=== PATIENT | female | born 1960 | race Caucasian/White ===

== ENCOUNTER 2019-05-29 07:39 | Observation (INO) | payer MEDICAID ==
--- NOTE | 2019-05-29 08:31 | EDM.PDOC ---
ED HPI GENERAL MEDICAL PROBLEM - General Chief Complaint: Abdominal Pain Stated Complaint: STOMACH, CHEST AND BACK PAIN Time Seen by Provider: 05/29/19 08:28 Source of Information: Reports: Patient History Limitations: Reports: No Limitations - History of Present Illness INITIAL COMMENTS - FREE TEXT/NARRATIVE: 58-year-old female who reports that she was awakened at approximately 3 AM today with pain in her upper abdomen with abdominal bloating and radiation of the pain to her back. She had had some mild upset and mild discomfort in her abdomen at bedtime and took an antacid without any apparent relief but was able to go to sleep because the symptoms were mild at this point. The more severe pain has been present since 3 AM and been somewhat colicky in nature but has never gone away and it seems to be worsening over time rather than improving. She has had pain similar to this multiple times in the past but it has been less severe and it has always gone away with time. She has no change in the pain with drinking but she has had increase in the pain with eating and in the recent past she has had this pain after eating, particularly spicy or fatty foods. She is rating the pain as an 8/10. It is a sharp pain and spasm-like pain that has a constant component and a waxing and waning component that feels like tearing. She has had nausea but no vomiting. Some chills but no fever. There are no other associated signs or symptoms. There are no other modifying factors. Onset: Today (3 AM) Duration: Getting Worse Location: Reports: Abdomen, Back, Radiates to (Back) Quality: Reports: Sharp, Throbbing, Other (Spasm-like) Improves with: Reports: None Worsens with: Reports: Eating, Other (Palpation) Context: Reports: Other Associated Symptoms: Reports: Diaphoresis, Fever/Chills (Chills but no known fever), Nausea/Vomiting, Weakness Treatments RN REHAB: Reports: Other (see below) (As above) Lower Abdomen Pain Score (Numeric/FACES): 6 - Related Data Allergies Allergy/AdvReac Type Severity Reaction Status Date / Time No Known Allergies Allergy Verified 05/29/19 09:10 Home Meds: Home Meds Benazepril [Lotensin] 20 mg PO DAILY 05/29/19 [History] Naproxen 500 mg PO Q8H PRN 05/29/19 [History] medroxyPROGESTERone [Provera] 10 mg PO DAILY 05/29/19 [History] Past Medical History Cardiovascular History: Reports: High Cholesterol, Hypertension Gastrointestinal History: Reports: GERD, Irritable Bowel Syndrome Musculoskeletal History: Reports: Fibromyalgia Psychiatric History: Reports: Anxiety, Depression - Past Surgical History Other Surgical History Comment: No previous surgeries. Social & Family History - Tobacco Use Smoking Status *Q: Never Smoker - Alcohol Use Alcohol Use History: No - Living Situation & Occupation Social History Comment: She is here with her daughter. ED ROS GENERAL - Review of Systems Review Of Systems: See Below Constitutional: Reports: Chills, Diaphoresis HEENT: Reports: No Symptoms Respiratory: Reports: No Symptoms Cardiovascular: Reports: No Symptoms Endocrine: Reports: No Symptoms GI/Abdominal: Reports: Abdominal Pain, Nausea : Reports: No Symptoms Musculoskeletal: Reports: Other (Pain all over, which she states is her usual fibromyalgia pain but maybe a little worse.) Skin: Reports: Diaphoresis Neurological: Reports: No Symptoms Hematologic/Lymphatic: Reports: No Symptoms Immunologic: Reports: No Symptoms ED EXAM, GI/ABD - Physical Exam Exam: See Below Exam Limited By: No Limitations General Appearance: Alert, Moderate Distress, Obese Eyes: Bilateral: Normal Appearance (Sclerae are anicteric), EOMI Ears: Normal External Exam Nose: Normal Inspection, Normal Mucosa, No Blood Throat/Mouth: Normal Voice, No Airway Compromise, Other (Dry mucous membranes) Head: Atraumatic, Normocephalic Neck: Normal Inspection, Supple, Non-Tender, Full Range of Motion Respiratory/Chest: No Respiratory Distress, Lungs Clear, Normal Breath Sounds, No Accessory Muscle Use, Other (Chest is tender to palpation diffusely and patient reports this is due to her fibromyalgia) Cardiovascular: Normal Peripheral Pulses, Regular Rate, Rhythm, No JVD GI/Abdominal Exam: Pelvis Stable, Distended, Tender (In right upper quadrant exquisitely), Abnormal Bowel Sounds (Somewhat diminished) Extremities: Normal Inspection, Normal Range of Motion, Non-Tender, No Pedal Edema, Normal Capillary Refill Neurological: Alert, Oriented, CN II-XII Intact, Normal Cognition, No Motor/ Sensory Deficits Skin Exam: Warm, Intact, Normal Color, No Rash, Diaphoretic (Slightly) EKG INTERPRETATION EKG Date: 05/29/19 Time: 08:16 Rhythm: NSR Rate (Beats/Min): 74 [place]: Normal P-Wave: Present QRS: Normal ST-T: Normal QT: Normal Comparison: NA - No Prior EKG Course - Vital Signs Last Recorded V/S: Last Vital Signs Temp 36.6 C 05/30/19 16:00 Pulse 101 H 05/30/19 16:00 Resp 15 05/30/19 16:00 BP 130/66 05/30/19 16:00 Pulse Ox 97 05/30/19 16:00 - Orders/Labs/Meds Orders: Medication Orders Hydrocodone Bitart/Acetaminophen (Burns 325-5 Mg) 1 tab PO Q4H PRN PRN Reason: Pain (mild 1-3) Last Admin: 05/30/19 21:00 Dose: 1 tab Admin: 05/30/19 17:09 Dose: 1 tab Benazepril HCl (Lotensin) 20 mg PO DAILY COUNTS INCLUDE 234 BEDS AT THE [facility] Last Admin: 05/30/19 12:22 Dose: 20 mg Hydromorphone HCl (Dilaudid) 0.5 mg IVPUSH Q2H PRN PRN Reason: Pain (severe 7-10) Last Admin: 05/30/19 18:25 Dose: 0.5 mg Admin: 05/30/19 12:24 Dose: 0.5 mg Admin: 05/30/19 03:19 Dose: 0.5 mg Admin: 05/29/19 21:59 Dose: 0.5 mg Admin: 05/29/19 19:43 Dose: 0.5 mg Admin: 05/29/19 16:55 Dose: 0.5 mg Lactated Ringer's (Ringers, Lactated) 1,000 mls @ 125 mls/hr IV ASDIRECTED COUNTS INCLUDE 234 BEDS AT THE [facility] Last Admin: 05/30/19 18:13 Dose: 125 mls/hr Infusion: 05/30/19 17:00 Dose: 125 mls/hr Admin: 05/30/19 09:00 Dose: 125 mls/hr Medroxyprogesterone (10mg) 0 each PO DAILY COUNTS INCLUDE 234 BEDS AT THE [facility] Last Admin: 05/30/19 12:21 Dose: 1 each Ondansetron HCl (Zofran) 4 mg IV Q6H PRN PRN Reason: Nausea/Vomiting Sodium Chloride (Saline Flush) 10 ml FLUSH ASDIRECTED PRN PRN Reason: Keep Vein Open Last Admin: 05/30/19 12:25 Dose: 10 ml Admin: 05/29/19 09:16 Dose: 10 ml Labs: Laboratory Tests 05/29/19 05/29/19 05/29/19 Range/Units 08:00 08:57 08:57 WBC 10.1 (4.5-12.0) X10-3/uL RBC 5.35 H (3.23-5.20) x10(6)uL Hgb 15.6 H (11.5-15.5) g/dL Hct 47.6 (30.0-51.3) % MCV 89.0 (80-96) fL MCH 29.2 (27.7-33.6) pg MCHC 32.8 (32.2-35.4) g/dL RDW 13.6 (11.5-15.5) % Plt Count 158 (125-369) X10(3)uL MPV 8.6 (7.4-10.4) fL Neut % (Auto) 84.6 H (46-82) % Lymph % (Auto) 11.2 L (13-37) % [place] % (Auto) 3.7 L (4-12) % Eos % (Auto) 0 L (1.0-5.0) % Baso % (Auto) 0 (0-2) % Neut # (Auto) 8.6 H (1.6-8.3) # Lymph # (Auto) 1.1 (0.6-5.0) # [place] # (Auto) 0.4 (0.0-1.3) # Eos # (Auto) 0.0 (0.0-0.8) # Baso # (Auto) 0.0 (0.0-0.2) # Sodium 137 (135-145) mmol/L Potassium 5.0 (3.5-5.3) mmol/L Chloride 101 (100-110) mmol/L Carbon Dioxide 25 (21-32) mmol/L BUN 6 L (7-18) mg/dL Creatinine 0.8 (0.55-1.02) mg/dL Est Cr Clr Drug Dosing 70.01 mL/min Estimated GFR (MDRD) > 60 (>60) BUN/Creatinine Ratio 7.5 L (9-20) Glucose 397 H (80-116) mg/dL Calcium 9.1 (8.6-10.2) mg/dL Total Bilirubin 0.8 (0.1-1.3) mg/dL AST 28 H (5-25) IU/L ALT 54 H (12-36) U/L Alkaline Phosphatase 135 H (56-112) IU/L Troponin I (<0.017-0.056) ng/mL C-Reactive Protein (0.5-0.9) mg/dL Total Protein 7.7 (6.0-8.0) g/dL Albumin 3.7 (3.2-4.6) g/dL Globulin 4.0 g/dL Albumin/Globulin Ratio 0.9 Amylase 47 (25-115) U/L Urine Color Yellow (YELLOW) Urine Appearance Clear (CLEAR) Urine pH 5.0 (5.0-6.5) Ur Specific [place] 1.015 (1.010-1.025) Urine Protein Negative (NEGATIVE) mg/dL Urine Glucose (UA) >1000 H (NORMAL) mg/dL Urine Ketones 50 H (NEGATIVE) mg/dL Urine Occult Blood Moderate H (NEGATIVE) Urine Nitrite Negative (NEGATIVE) Urine Bilirubin Negative (NEGATIVE) Urine Urobilinogen Normal (NEGATIVE) mg/dL Ur Leukocyte Esterase Moderate H (NEGATIVE) Urine RBC 5-10 H (0-5) Urine WBC 5-10 H (0-5) Ur Squamous Epith Cells Moderate H (NS,R,O) Urine Bacteria Few H (NS) 05/29/19 05/29/19 Range/Units 08:57 08:57 WBC (4.5-12.0) X10-3/uL RBC (3.23-5.20) x10(6)uL Hgb (11.5-15.5) g/dL Hct (30.0-51.3) % MCV (80-96) fL MCH (27.7-33.6) pg MCHC (32.2-35.4) g/dL RDW (11.5-15.5) % Plt Count (125-369) X10(3)uL MPV (7.4-10.4) fL Neut % (Auto) (46-82) % Lymph % (Auto) (13-37) % [place] % (Auto) (4-12) % Eos % (Auto) (1.0-5.0) % Baso % (Auto) (0-2) % Neut # (Auto) (1.6-8.3) # Lymph # (Auto) (0.6-5.0) # [place] # (Auto) (0.0-1.3) # Eos # (Auto) (0.0-0.8) # Baso # (Auto) (0.0-0.2) # Sodium (135-145) mmol/L Potassium (3.5-5.3) mmol/L Chloride (100-110) mmol/L Carbon Dioxide (21-32) mmol/L BUN (7-18) mg/dL Creatinine (0.55-1.02) mg/dL Est Cr Clr Drug Dosing mL/min Estimated GFR (MDRD) (>60) BUN/Creatinine Ratio (9-20) Glucose (80-116) mg/dL Calcium (8.6-10.2) mg/dL Total Bilirubin (0.1-1.3) mg/dL AST (5-25) IU/L ALT (12-36) U/L Alkaline Phosphatase (56-112) IU/L Troponin I < 0.017 L (<0.017-0.056) ng/mL C-Reactive Protein 2.2 H (0.5-0.9) mg/dL Total Protein (6.0-8.0) g/dL Albumin (3.2-4.6) g/dL Globulin g/dL Albumin/Globulin Ratio Amylase (25-115) U/L Urine Color (YELLOW) Urine Appearance (CLEAR) Urine pH (5.0-6.5) Ur Specific [place] (1.010-1.025) Urine Protein (NEGATIVE) mg/dL Urine Glucose (UA) (NORMAL) mg/dL Urine Ketones (NEGATIVE) mg/dL Urine Occult Blood (NEGATIVE) Urine Nitrite (NEGATIVE) Urine Bilirubin (NEGATIVE) Urine Urobilinogen (NEGATIVE) mg/dL Ur Leukocyte Esterase (NEGATIVE) Urine RBC (0-5) Urine WBC (0-5) Ur Squamous Epith Cells (NS,R,O) Urine Bacteria (NS) Meds: Medications Generic Name Dose Route Start Last Admin Trade Name Freq PRN Reason Stop Dose Admin Hydrocodone Bitart/Acetaminophen 1 tab 05/30/19 10:54 05/30/19 21:00 Burns 325-5 Mg PO 1 tab Q4H PRN Administration Pain (mild 1-3) Benazepril HCl 20 mg 05/30/19 09:00 05/30/19 12:22 Lotensin PO 20 mg DAILY BRIANA Administration Hydromorphone HCl 0.5 mg 05/29/19 13:56 05/30/19 18:25 Dilaudid IVPUSH 0.5 mg Q2H PRN Administration Pain (severe 7-10) Lactated Ringer's 1,000 mls @ 125 mls/hr 05/30/19 11:00 05/30/19 18:13 Ringers, Lactated IV 125 mls/hr ASDIRECTED BRIANA Administration Medroxyprogesterone 0 each 05/30/19 09:00 05/30/19 12:21 10mg PO 1 each DAILY BRIANA Administration Ondansetron HCl 4 mg 05/29/19 13:56 Zofran IV Q6H PRN Nausea/Vomiting Sodium Chloride 10 ml 05/29/19 08:44 05/30/19 12:25 Saline Flush FLUSH 10 ml ASDIRECTED PRN Administration Keep Vein Open Discontinued Medications Generic Name Dose Route Start Last Admin Trade Name Freq PRN Reason Stop Dose Admin Fentanyl 50 mcg 05/29/19 08:46 05/29/19 09:14 Sublimaze IVPUSH 05/29/19 08:47 50 mcg ONETIME ONE Administration Hydromorphone HCl 1 mg 05/29/19 12:30 05/29/19 12:45 Dilaudid IVPUSH 05/29/19 12:31 1 mg ONETIME ONE Administration Sodium Chloride 1,000 mls @ 999 mls/hr 05/29/19 08:46 05/29/19 09:12 Normal Saline IV 05/29/19 09:46 999 mls/hr .BOLUS ONE Administration Sodium Chloride 1,000 mls @ 150 mls/hr 05/29/19 09:00 05/30/19 03:12 Normal Saline IV 150 mls/hr ASDIRECTED BRIANA Administration Piperacillin Sod/Tazobactam 50 mls @ 100 mls/hr 05/29/19 12:00 05/29/19 21:33 Sod 3.375 gm/ Sodium Chloride IV Not Given Q6H BRIANA Piperacillin Sod/Tazobactam 50 mls @ 100 mls/hr 05/29/19 22:30 05/30/19 14:38 Sod 3.375 gm/ Sodium Chloride IV Not Given Q6H BRIANA Ondansetron HCl 4 mg 05/29/19 08:46 05/29/19 09:12 Zofran IVPUSH 05/29/19 08:47 4 mg ONETIME ONE Administration - Re-Assessments/Exams Free Text/Narrative Re-Assessment/Exam: 05/29/19 11:00: Patient's right upper quadrant ultrasound showed several stones within the gallbladder and somewhat thickened gallbladder wall with no pericholecystic fluid. The patient did have a sonographic Villatoro. Her lab tests were somewhat reassuring but did have an elevated CRP and some mildly elevated LFTs. Her exam, blood tests and ultrasound are consistent with early cholecystitis. I feel the patient will need admission or pain control, IV antibiotics and likely surgery. I will discuss this with the patient. 05/29/19 11:40: Patient's pain was somewhat improved after the initial dose of fentanyl but following the ultrasound pain increased again. I spent a good bit of time discussing the findings of the ultrasound and the implications of the ultrasound, her exam and her blood tests. She was fairly hesitant for surgical referral or consultation because apparently several family members have had bad experiences after they had had their gallbladders taken out. I did discuss the patient's case with Dr. Tate and I did not feel that it was safe to attempt discharge because I felt that she had acute cholecystitis and would have increased morbidity and likelihood of recurrent admission for this if we were to discharge the patient. The patient has agreed to admission with IV fluids, pain medication and IV antibiotics and Dr. Tate has agreed to admit the patient. The patient has also agreed to surgical consultation. Therefore I will admit the patient. 05/29/19 13:45: I have placed should orders for Dr. Tate on this patient. I have also written for additional pain medications as her pain was worsening. Dr. Tate has seen the patient and will see the patient later today. He will be arranging for Dr. Kaplan to see the patient as well. Departure - Departure Time of Disposition: 13:48 Disposition: Refer to Observation Condition: Fair Clinical Impression: Acute cholecystitis, Uncontrolled pain, Dehydration - Discharge Information
[2019-05-29] MEDS ORDERED: Sodium Chloride 0.9% 1,000 ML IV ONE (08:46)
[2019-05-29] MEDS ORDERED: Ondansetron 4 MG/2 ML SDV IVPUSH ONE (08:46)
[2019-05-29] MEDS ORDERED: fentaNYL 100 MCG/2 ML SDV IVPUSH ONE (08:46)
[2019-05-29] MEDS: Sodium Chloride 0.9% 10 ML Syringe FLUSH PRN (09:16)
[2019-05-29] MEDS: Sodium Chloride 0.9% 1,000 ML IV SCH ×2 (10:12→20:38)
[2019-05-29] MEDS ORDERED: HYDROmorphone 2 MG/ML SDV IVPUSH ONE (12:30)
[2019-05-29] MEDS ORDERED: Ondansetron 4 MG/2 ML SDV IV PRN (13:56)
--- NOTE | 2019-05-29 15:20 | PCM.HP ---
H&P History of Present Illness - General Date of Service: 05/29/19 Admit Problem/Dx: Admission Diagnosis/Problem Admission Diagnosis/Problem Cholecystitis Source of Information: Patient History Limitations: Reports: No Limitations - History of Present Illness Initial Comments - Free Text/Narative: This is 58-year-old female patient came in complaining of abdominal pain radiating to the back. ER doc saw her and diagnosed gallbladder disease and felt this could be cholecystitis. Patient says she's had some abdominal pain off and on but today it really got bad. She has nausea but no fevers or chills. Abdominal pain is upper abdomen worse on the right than on the left. She denies vomiting, diarrhea, constipation, dysuria, pyuria, hematuria. Ultrasound the ER show gallstones and positive Villatoro sign. Lower Abdomen Pain Score (Numeric/FACES): 10 - Related Data Allergies/Adverse Reactions: Allergies Allergy/AdvReac Type Severity Reaction Status Date / Time No Known Allergies Allergy Verified 05/29/19 09:10 Home Medications: Home Meds Benazepril [Lotensin] 20 mg PO DAILY 05/29/19 [History] Naproxen 500 mg PO Q8H PRN 05/29/19 [History] medroxyPROGESTERone [Provera] 10 mg PO DAILY 05/29/19 [History] Past Medical History Cardiovascular History: Reports: Hypertension Respiratory History: Reports: Asthma, Sleep Apnea Other Respiratory History: pt has sleep apnea as verbalized by daughter Genitourinary History: Reports: Other (See Below) Other Genitourinary History: cervical hyperplasia CERTIFIED [employer] REPORTER History: Reports: Other (See Below) Other OB/BYN History: cervical hyperplasia Musculoskeletal History: Reports: Other (See Below) Other Musculoskeletal History: fibromyalgia Neurological History: Reports: Migraines Other Neuro History: and tension headache from fibromyalgia - Past Surgical History HEENT Surgical History: Reports: Oral Surgery, Other (See Below) Other HEENT Surgeries/Procedures: wisdom teeth extraction Cardiovascular Surgical History: Reports: None Respiratory Surgical History: Reports: None Female Surgical History: Reports: Other (See Below) Other Female Surgeries/Procedures: multiple martínez cyst (fibroid) on the breast , not taking drugs or not candidate for surgery Social & Family History - Tobacco Use Smoking Status *Q: Never Smoker Second Hand Smoke Exposure: No - Caffeine Use Caffeine Use: Reports: Soda Caffeine Use Comment: seldom drinks soda or coffee - Recreational Drug Use Recreational Drug Use: No H&P Review of Systems - Review of Systems: Review Of Systems: See Below General: Reports: No Symptoms HEENT: Reports: No Symptoms Pulmonary: Reports: No Symptoms Cardiovascular: Reports: No Symptoms Gastrointestinal: Reports: Abdominal Pain, Anorexia, Decreased Appetite, Nausea. Denies: Bloody Stool, Vomiting Genitourinary: Reports: No Symptoms Musculoskeletal: Reports: No Symptoms Skin: Reports: No Symptoms Psychiatric: Reports: No Symptoms Neurological: Reports: No Symptoms Hematologic/Lymphatic: Reports: No Symptoms Immunologic: Reports: No Symptoms Exam - Exam Exam: See Below - Vital Signs Weight: 278 lb 1.6 oz - Exam General: Alert, Oriented, Cooperative, Mild Distress HEENT: Hearing Intact, Mucosa Moist & [place], Posterior Pharynx Clear, TMs Clear Neck: Supple, Trachea Midline Lungs: Clear to Auscultation, Normal Respiratory Effort Cardiovascular: Regular Rate, Regular Rhythm. No: Systolic Murmur GI/Abdominal Exam: No Organomegaly, No Distention, No Abnormal Bruit, Other ( Pain with some mild guarding in the right upper quadrant.) Back Exam: Normal Inspection. No: CVA Tenderness (R), CVA Tenderness (L) Extremities: No Pedal Edema Skin: Warm, Dry, Intact Neuro Extensive - Mental Status: Alert, Oriented x3, Normal Mood/Affect, Normal Cognition, Memory Intact Neuro Extensive - Motor, Sensory, Reflexes: Normal Gait Psychiatric: Alert, Normal Affect, Normal Mood - Patient Data Lab Results Last 24 hrs: Laboratory Results - last 24 hr 05/29/19 05/29/19 05/29/19 Range/Units 08:00 08:57 08:57 WBC 10.1 (4.5-12.0) X10-3/uL RBC 5.35 H (3.23-5.20) x10(6)uL Hgb 15.6 H (11.5-15.5) g/dL Hct 47.6 (30.0-51.3) % MCV 89.0 (80-96) fL MCH 29.2 (27.7-33.6) pg MCHC 32.8 (32.2-35.4) g/dL RDW 13.6 (11.5-15.5) % Plt Count 158 (125-369) X10(3)uL MPV 8.6 (7.4-10.4) fL Neut % (Auto) 84.6 H (46-82) % Lymph % (Auto) 11.2 L (13-37) % [place] % (Auto) 3.7 L (4-12) % Eos % (Auto) 0 L (1.0-5.0) % Baso % (Auto) 0 (0-2) % Neut # (Auto) 8.6 H (1.6-8.3) # Lymph # (Auto) 1.1 (0.6-5.0) # [place] # (Auto) 0.4 (0.0-1.3) # Eos # (Auto) 0.0 (0.0-0.8) # Baso # (Auto) 0.0 (0.0-0.2) # Sodium 137 (135-145) mmol/L Potassium 5.0 (3.5-5.3) mmol/L Chloride 101 (100-110) mmol/L Carbon Dioxide 25 (21-32) mmol/L BUN 6 L (7-18) mg/dL Creatinine 0.8 (0.55-1.02) mg/dL Est Cr Clr Drug Dosing 70.01 mL/min Estimated GFR (MDRD) > 60 (>60) BUN/Creatinine Ratio 7.5 L (9-20) Glucose 397 H (80-116) mg/dL Calcium 9.1 (8.6-10.2) mg/dL Total Bilirubin 0.8 (0.1-1.3) mg/dL AST 28 H (5-25) IU/L ALT 54 H (12-36) U/L Alkaline Phosphatase 135 H (56-112) IU/L Troponin I (<0.017-0.056) ng/mL C-Reactive Protein (0.5-0.9) mg/dL Total Protein 7.7 (6.0-8.0) g/dL Albumin 3.7 (3.2-4.6) g/dL Globulin 4.0 g/dL Albumin/Globulin Ratio 0.9 Amylase 47 (25-115) U/L Urine Color Yellow (YELLOW) Urine Appearance Clear (CLEAR) Urine pH 5.0 (5.0-6.5) Ur Specific [place] 1.015 (1.010-1.025) Urine Protein Negative (NEGATIVE) mg/dL Urine Glucose (UA) >1000 H (NORMAL) mg/dL Urine Ketones 50 H (NEGATIVE) mg/dL Urine Occult Blood Moderate H (NEGATIVE) Urine Nitrite Negative (NEGATIVE) Urine Bilirubin Negative (NEGATIVE) Urine Urobilinogen Normal (NEGATIVE) mg/dL Ur Leukocyte Esterase Moderate H (NEGATIVE) Urine RBC 5-10 H (0-5) Urine WBC 5-10 H (0-5) Ur Squamous Epith Cells Moderate H (NS,R,O) Urine Bacteria Few H (NS) 05/29/19 05/29/19 Range/Units 08:57 08:57 WBC (4.5-12.0) X10-3/uL RBC (3.23-5.20) x10(6)uL Hgb (11.5-15.5) g/dL Hct (30.0-51.3) % MCV (80-96) fL MCH (27.7-33.6) pg MCHC (32.2-35.4) g/dL RDW (11.5-15.5) % Plt Count (125-369) X10(3)uL MPV (7.4-10.4) fL Neut % (Auto) (46-82) % Lymph % (Auto) (13-37) % [place] % (Auto) (4-12) % Eos % (Auto) (1.0-5.0) % Baso % (Auto) (0-2) % Neut # (Auto) (1.6-8.3) # Lymph # (Auto) (0.6-5.0) # [place] # (Auto) (0.0-1.3) # Eos # (Auto) (0.0-0.8) # Baso # (Auto) (0.0-0.2) # Sodium (135-145) mmol/L Potassium (3.5-5.3) mmol/L Chloride (100-110) mmol/L Carbon Dioxide (21-32) mmol/L BUN (7-18) mg/dL Creatinine (0.55-1.02) mg/dL Est Cr Clr Drug Dosing mL/min Estimated GFR (MDRD) (>60) BUN/Creatinine Ratio (9-20) Glucose (80-116) mg/dL Calcium (8.6-10.2) mg/dL Total Bilirubin (0.1-1.3) mg/dL AST (5-25) IU/L ALT (12-36) U/L Alkaline Phosphatase (56-112) IU/L Troponin I < 0.017 L (<0.017-0.056) ng/mL C-Reactive Protein 2.2 H (0.5-0.9) mg/dL Total Protein (6.0-8.0) g/dL Albumin (3.2-4.6) g/dL Globulin g/dL Albumin/Globulin Ratio Amylase (25-115) U/L Urine Color (YELLOW) Urine Appearance (CLEAR) Urine pH (5.0-6.5) Ur Specific [place] (1.010-1.025) Urine Protein (NEGATIVE) mg/dL Urine Glucose (UA) (NORMAL) mg/dL Urine Ketones (NEGATIVE) mg/dL Urine Occult Blood (NEGATIVE) Urine Nitrite (NEGATIVE) Urine Bilirubin (NEGATIVE) Urine Urobilinogen (NEGATIVE) mg/dL Ur Leukocyte Esterase (NEGATIVE) Urine RBC (0-5) Urine WBC (0-5) Ur Squamous Epith Cells (NS,R,O) Urine Bacteria (NS) Result Diagrams: 05/29/19 08:57 05/29/19 08:57 - Problem List (1) Cholecystitis SNOMED Code(s): 98457766 ICD Code: K81.9 - CHOLECYSTITIS, UNSPECIFIED Status: Acute Current Visit : Yes Problem List Initiated/Reviewed/Updated: Yes Orders Last 24hrs: Active Orders 24 hr Category Date Time Status Admission Status [Patient Status] [ADT] Routine ADT 05/29/19 11:48 Active Patient Status Manage Transfer [TRANSFER] Routine ADT 05/29/19 11:50 Active Blood Glucose Check, Bedside [RC] QIDACANDBED Care 05/29/19 13:56 Active EKG Documentation Completion [RC] ASDIRECTED Care 05/29/19 08:46 Active Height and Weight [RC] UPON Care 05/29/19 13:56 Active Intake and Output [RC] QSHIFT Care 05/29/19 13:57 Active Oxygen Therapy [RC] PRN Care 05/29/19 13:56 Active VTE/DVT Education [RC] Per Unit Routine Care 05/29/19 13:56 Active Vital Signs [RC] Q4H Care 05/29/19 13:56 Active Nothing per Oral Now Diet [DIET] Diet 05/29/19 Lunch Active Abdomen Ltd [US] Stat Exams 05/29/19 08:44 Taken Benazepril [Lotensin] Med 05/30/19 09:00 Ordered 20 mg PO DAILY HYDROmorphone [Dilaudid] Med 05/29/19 13:56 Active 0.5 mg IVPUSH Q2H PRN Ondansetron [Zofran] Med 05/29/19 13:56 Active 4 mg IV Q6H PRN Piperacillin/Tazobactam [Zosyn] 3.375 gm Med 05/29/19 12:00 Active Sodium Chloride 0.9% [Normal Saline] 50 ml IV Q6H Sodium Chloride 0.9% [Normal Saline] 1,000 ml Med 05/29/19 09:00 Active IV ASDIRECTED Sodium Chloride 0.9% [Saline Flush] Med 05/29/19 08:44 Active 10 ml FLUSH ASDIRECTED PRN medroxyPROGESTERone [Provera] Med 05/30/19 09:00 Ordered 10 mg PO DAILY Peripheral IV Insertion Adult [OM.PC] Routine Oth 05/29/19 08:44 Ordered Resuscitation Status Routine Resus Stat 05/29/19 13:56 Ordered EKG 12 Lead [EK] Routine Ther 05/29/19 08:46 Ordered Medication Orders Benazepril HCl (Lotensin) 20 mg PO DAILY BRIANA Hydromorphone HCl (Dilaudid) 0.5 mg IVPUSH Q2H PRN PRN Reason: Pain (severe 7-10) Sodium Chloride (Normal Saline) 1,000 mls @ 150 mls/hr IV ASDIRECTED BRIANA Piperacillin Sod/Tazobactam (Sod 3.375 gm/ Sodium Chloride) 50 mls @ 100 mls/ hr IV Q6H BRIANA Non-Formulary Medication (Medroxyprogesterone [Provera]) 10 mg PO DAILY BRIANA Ondansetron HCl (Zofran) 4 mg IV Q6H PRN PRN Reason: Nausea/Vomiting Sodium Chloride (Saline Flush) 10 ml FLUSH ASDIRECTED PRN PRN Reason: Keep Vein Open Last Admin: 05/29/19 09:16 Dose: 10 ml Assessment/Plan Comment:: 1. Admit for observation. 2. IV antibiotics with Zosyn. 3. Nothing by mouth 4. Dilaudid for pain IV. 5. Surgical consult was made with Dr. Kaplan and he will see her. 6. Been overweight with the Lovenox until I see Dr. Kaplan opinion. 7. Up ad sandhya.
--- NOTE | 2019-05-29 16:36 | PCM.CONS ---
H&P History of Present Illness - General Date of Service: 05/29/19 Admit Problem/Dx: Admission Diagnosis/Problem Admission Diagnosis/Problem Symptomatic Cholelithiasis and Cholecystitis Source of Information: Patient, EMS History Limitations: Reports: No Limitations - History of Present Illness Duration of Symptoms: Reports: Chronic, Intermittent (for several months, last pm became very severe and caused her to come to the ER this am), Waxing/Waning Location: Reports: Abdomen (RUQ), Back (mid radiating) Quality: Reports: Ache, Pressure, Stabbing (earlier, better after pain meds) Severity: Severe Improves with: Reports: Medication Associated Symptoms: Reports: No Other Symptoms Lower Abdomen Pain Score (Numeric/FACES): 10 - Related Data Allergies/Adverse Reactions: Allergies Allergy/AdvReac Type Severity Reaction Status Date / Time No Known Allergies Allergy Verified 05/29/19 09:10 Home Medications: Home Meds Benazepril [Lotensin] 20 mg PO DAILY 05/29/19 [History] Naproxen 500 mg PO Q8H PRN 05/29/19 [History] medroxyPROGESTERone [Provera] 10 mg PO DAILY 05/29/19 [History] Past Medical History Cardiovascular History: Reports: Hypertension Respiratory History: Reports: Asthma, Sleep Apnea Other Respiratory History: pt has sleep apnea as verbalized by daughter Genitourinary History: Reports: Other (See Below) Other Genitourinary History: cervical hyperplasia [employer]PER[employer] History: Reports: Other (See Below) Other OB/BYN History: cervical hyperplasia Musculoskeletal History: Reports: Other (See Below) Other Musculoskeletal History: fibromyalgia Neurological History: Reports: Migraines Other Neuro History: and tension headache from fibromyalgia - Past Surgical History HEENT Surgical History: Reports: Oral Surgery, Other (See Below) Other HEENT Surgeries/Procedures: wisdom teeth extraction Cardiovascular Surgical History: Reports: None Respiratory Surgical History: Reports: None Female Surgical History: Reports: Other (See Below) Other Female Surgeries/Procedures: multiple martínez cyst (fibroid) on the breast , not taking drugs or not candidate for surgery Social & Family History - Tobacco Use Smoking Status *Q: Never Smoker Second Hand Smoke Exposure: No - Caffeine Use Caffeine Use: Reports: Soda Caffeine Use Comment: seldom drinks soda or coffee - Recreational Drug Use Recreational Drug Use: No H&P Review of Systems - Review of Systems: Review Of Systems: See Below General: Denies: Fever, Chills, Night Sweats Pulmonary: Reports: No Symptoms Cardiovascular: Reports: No Symptoms Gastrointestinal: Reports: Abdominal Pain (as above). Denies: Diarrhea, Nausea , Vomiting Genitourinary: Reports: No Symptoms Psychiatric: Reports: No Symptoms Neurological: Reports: No Symptoms Exam - Exam Exam: See Below - Vital Signs Weight: 126.144 kg - Exam General: Alert, Oriented HEENT: No: Scleral Icterus Lungs: Clear to Auscultation, Normal Respiratory Effort Cardiovascular: Regular Rate, Regular Rhythm GI/Abdominal Exam: Normal Bowel Sounds, Soft, Non-Tender, No Distention. No: Hernia Neuro Extensive - Mental Status: Alert, Oriented x3, Normal Mood/Affect - Patient Data Lab Results Last 24 hrs: Laboratory Results - last 24 hr 05/29/19 05/29/19 05/29/19 Range/Units 08:00 08:57 08:57 WBC 10.1 (4.5-12.0) X10-3/uL RBC 5.35 H (3.23-5.20) x10(6)uL Hgb 15.6 H (11.5-15.5) g/dL Hct 47.6 (30.0-51.3) % MCV 89.0 (80-96) fL MCH 29.2 (27.7-33.6) pg MCHC 32.8 (32.2-35.4) g/dL RDW 13.6 (11.5-15.5) % Plt Count 158 (125-369) X10(3)uL MPV 8.6 (7.4-10.4) fL Neut % (Auto) 84.6 H (46-82) % Lymph % (Auto) 11.2 L (13-37) % Kay % (Auto) 3.7 L (4-12) % Eos % (Auto) 0 L (1.0-5.0) % Baso % (Auto) 0 (0-2) % Neut # (Auto) 8.6 H (1.6-8.3) # Lymph # (Auto) 1.1 (0.6-5.0) # Kay # (Auto) 0.4 (0.0-1.3) # Eos # (Auto) 0.0 (0.0-0.8) # Baso # (Auto) 0.0 (0.0-0.2) # Sodium 137 (135-145) mmol/L Potassium 5.0 (3.5-5.3) mmol/L Chloride 101 (100-110) mmol/L Carbon Dioxide 25 (21-32) mmol/L BUN 6 L (7-18) mg/dL Creatinine 0.8 (0.55-1.02) mg/dL Est Cr Clr Drug Dosing 70.01 mL/min Estimated GFR (MDRD) > 60 (>60) BUN/Creatinine Ratio 7.5 L (9-20) Glucose 397 H (80-116) mg/dL Calcium 9.1 (8.6-10.2) mg/dL Total Bilirubin 0.8 (0.1-1.3) mg/dL AST 28 H (5-25) IU/L ALT 54 H (12-36) U/L Alkaline Phosphatase 135 H (56-112) IU/L Troponin I (<0.017-0.056) ng/mL C-Reactive Protein (0.5-0.9) mg/dL Total Protein 7.7 (6.0-8.0) g/dL Albumin 3.7 (3.2-4.6) g/dL Globulin 4.0 g/dL Albumin/Globulin Ratio 0.9 Amylase 47 (25-115) U/L Urine Color Yellow (YELLOW) Urine Appearance Clear (CLEAR) Urine pH 5.0 (5.0-6.5) Ur Specific [place] 1.015 (1.010-1.025) Urine Protein Negative (NEGATIVE) mg/dL Urine Glucose (UA) >1000 H (NORMAL) mg/dL Urine Ketones 50 H (NEGATIVE) mg/dL Urine Occult Blood Moderate H (NEGATIVE) Urine Nitrite Negative (NEGATIVE) Urine Bilirubin Negative (NEGATIVE) Urine Urobilinogen Normal (NEGATIVE) mg/dL Ur Leukocyte Esterase Moderate H (NEGATIVE) Urine RBC 5-10 H (0-5) Urine WBC 5-10 H (0-5) Ur Squamous Epith Cells Moderate H (NS,R,O) Urine Bacteria Few H (NS) 05/29/19 05/29/19 Range/Units 08:57 08:57 WBC (4.5-12.0) X10-3/uL RBC (3.23-5.20) x10(6)uL Hgb (11.5-15.5) g/dL Hct (30.0-51.3) % MCV (80-96) fL MCH (27.7-33.6) pg MCHC (32.2-35.4) g/dL RDW (11.5-15.5) % Plt Count (125-369) X10(3)uL MPV (7.4-10.4) fL Neut % (Auto) (46-82) % Lymph % (Auto) (13-37) % Kay % (Auto) (4-12) % Eos % (Auto) (1.0-5.0) % Baso % (Auto) (0-2) % Neut # (Auto) (1.6-8.3) # Lymph # (Auto) (0.6-5.0) # Kay # (Auto) (0.0-1.3) # Eos # (Auto) (0.0-0.8) # Baso # (Auto) (0.0-0.2) # Sodium (135-145) mmol/L Potassium (3.5-5.3) mmol/L Chloride (100-110) mmol/L Carbon Dioxide (21-32) mmol/L BUN (7-18) mg/dL Creatinine (0.55-1.02) mg/dL Est Cr Clr Drug Dosing mL/min Estimated GFR (MDRD) (>60) BUN/Creatinine Ratio (9-20) Glucose (80-116) mg/dL Calcium (8.6-10.2) mg/dL Total Bilirubin (0.1-1.3) mg/dL AST (5-25) IU/L ALT (12-36) U/L Alkaline Phosphatase (56-112) IU/L Troponin I < 0.017 L (<0.017-0.056) ng/mL C-Reactive Protein 2.2 H (0.5-0.9) mg/dL Total Protein (6.0-8.0) g/dL Albumin (3.2-4.6) g/dL Globulin g/dL Albumin/Globulin Ratio Amylase (25-115) U/L Urine Color (YELLOW) Urine Appearance (CLEAR) Urine pH (5.0-6.5) Ur Specific [place] (1.010-1.025) Urine Protein (NEGATIVE) mg/dL Urine Glucose (UA) (NORMAL) mg/dL Urine Ketones (NEGATIVE) mg/dL Urine Occult Blood (NEGATIVE) Urine Nitrite (NEGATIVE) Urine Bilirubin (NEGATIVE) Urine Urobilinogen (NEGATIVE) mg/dL Ur Leukocyte Esterase (NEGATIVE) Urine RBC (0-5) Urine WBC (0-5) Ur Squamous Epith Cells (NS,R,O) Urine Bacteria (NS) Result Diagrams: 05/29/19 08:57 05/29/19 08:57 Imaging Impressions Last 24 hrs: US reviewed, has gallstones Consult PN Assessment/Plan Problem List Initiated/Reviewed/Updated: Yes My Orders Last 24 Hours: Will proceed with lap evens im am. discussed procedure risks and complications of bleeding anesth, converting to open, and bile duct injury, consent obtained
[2019-05-29] MEDS: Piperacillin/Tazobactam 3.375 GM in Sodium Chloride 0.9% 50 ML IV SCH ×3 (16:39→21:53)
[2019-05-29] MEDS: HYDROmorphone 2 MG/ML SDV IVPUSH PRN ×3 (16:55→21:59)
[2019-05-30] MEDS: Sodium Chloride 0.9% 1,000 ML IV SCH (03:12)
[2019-05-30] MEDS: HYDROmorphone 2 MG/ML SDV IVPUSH PRN ×3 (03:19→18:25)
[2019-05-30] MEDS: Piperacillin/Tazobactam 3.375 GM in Sodium Chloride 0.9% 50 ML IV SCH ×2 (03:59→14:38)
--- NOTE | 2019-05-30 08:21 | PCM.PN ---
- General Info Date of Service: 05/30/19 Admission Dx/Problem (Free Text): Patient states her pain is better today as well as 6/10 right upper quadrant. She has no diarrhea of this has some nausea. No fevers, chills - Patient Data Vitals - Most Recent: Last Vital Signs Temp 98.4 F 05/30/19 05:31 Pulse 106 H 05/30/19 05:31 Resp 18 05/30/19 05:31 BP 123/82 05/30/19 05:31 Pulse Ox 96 05/30/19 05:31 Weight - Most Recent: 278 lb 1.6 oz I&O - Last 24 Hours: Intake & Output 05/29/19 05/30/19 05/30/19 22:59 06:59 14:59 Intake Total 1390 Output Total 725 545 Balance 665 -545 Lab Results Last 24 Hours: Laboratory Results - last 24 hr 05/29/19 05/29/19 05/29/19 Range/Units 08:00 08:57 08:57 WBC 10.1 (4.5-12.0) X10-3/uL RBC 5.35 H (3.23-5.20) x10(6)uL Hgb 15.6 H (11.5-15.5) g/dL Hct 47.6 (30.0-51.3) % MCV 89.0 (80-96) fL MCH 29.2 (27.7-33.6) pg MCHC 32.8 (32.2-35.4) g/dL RDW 13.6 (11.5-15.5) % Plt Count 158 (125-369) X10(3)uL MPV 8.6 (7.4-10.4) fL Neut % (Auto) 84.6 H (46-82) % Lymph % (Auto) 11.2 L (13-37) % [place] % (Auto) 3.7 L (4-12) % Eos % (Auto) 0 L (1.0-5.0) % Baso % (Auto) 0 (0-2) % Neut # (Auto) 8.6 H (1.6-8.3) # Lymph # (Auto) 1.1 (0.6-5.0) # [place] # (Auto) 0.4 (0.0-1.3) # Eos # (Auto) 0.0 (0.0-0.8) # Baso # (Auto) 0.0 (0.0-0.2) # Sodium 137 (135-145) mmol/L Potassium 5.0 (3.5-5.3) mmol/L Chloride 101 (100-110) mmol/L Carbon Dioxide 25 (21-32) mmol/L BUN 6 L (7-18) mg/dL Creatinine 0.8 (0.55-1.02) mg/dL Est Cr Clr Drug Dosing 70.01 mL/min Estimated GFR (MDRD) > 60 (>60) BUN/Creatinine Ratio 7.5 L (9-20) Glucose 397 H (80-116) mg/dL POC Glucose (80-116) mg/dL Calcium 9.1 (8.6-10.2) mg/dL Total Bilirubin 0.8 (0.1-1.3) mg/dL AST 28 H (5-25) IU/L ALT 54 H (12-36) U/L Alkaline Phosphatase 135 H (56-112) IU/L Troponin I (<0.017-0.056) ng/mL C-Reactive Protein (0.5-0.9) mg/dL Total Protein 7.7 (6.0-8.0) g/dL Albumin 3.7 (3.2-4.6) g/dL Globulin 4.0 g/dL Albumin/Globulin Ratio 0.9 Amylase 47 (25-115) U/L Urine Color Yellow (YELLOW) Urine Appearance Clear (CLEAR) Urine pH 5.0 (5.0-6.5) Ur Specific [place] 1.015 (1.010-1.025) Urine Protein Negative (NEGATIVE) mg/dL Urine Glucose (UA) >1000 H (NORMAL) mg/dL Urine Ketones 50 H (NEGATIVE) mg/dL Urine Occult Blood Moderate H (NEGATIVE) Urine Nitrite Negative (NEGATIVE) Urine Bilirubin Negative (NEGATIVE) Urine Urobilinogen Normal (NEGATIVE) mg/dL Ur Leukocyte Esterase Moderate H (NEGATIVE) Urine RBC 5-10 H (0-5) Urine WBC 5-10 H (0-5) Ur Squamous Epith Cells Moderate H (NS,R,O) Urine Bacteria Few H (NS) 05/29/19 05/29/19 05/29/19 Range/Units 08:57 08:57 18:08 WBC (4.5-12.0) X10-3/uL RBC (3.23-5.20) x10(6)uL Hgb (11.5-15.5) g/dL Hct (30.0-51.3) % MCV (80-96) fL MCH (27.7-33.6) pg MCHC (32.2-35.4) g/dL RDW (11.5-15.5) % Plt Count (125-369) X10(3)uL MPV (7.4-10.4) fL Neut % (Auto) (46-82) % Lymph % (Auto) (13-37) % [place] % (Auto) (4-12) % Eos % (Auto) (1.0-5.0) % Baso % (Auto) (0-2) % Neut # (Auto) (1.6-8.3) # Lymph # (Auto) (0.6-5.0) # [place] # (Auto) (0.0-1.3) # Eos # (Auto) (0.0-0.8) # Baso # (Auto) (0.0-0.2) # Sodium (135-145) mmol/L Potassium (3.5-5.3) mmol/L Chloride (100-110) mmol/L Carbon Dioxide (21-32) mmol/L BUN (7-18) mg/dL Creatinine (0.55-1.02) mg/dL Est Cr Clr Drug Dosing mL/min Estimated GFR (MDRD) (>60) BUN/Creatinine Ratio (9-20) Glucose (80-116) mg/dL POC Glucose 230 H (80-116) mg/dL Calcium (8.6-10.2) mg/dL Total Bilirubin (0.1-1.3) mg/dL AST (5-25) IU/L ALT (12-36) U/L Alkaline Phosphatase (56-112) IU/L Troponin I < 0.017 L (<0.017-0.056) ng/mL C-Reactive Protein 2.2 H (0.5-0.9) mg/dL Total Protein (6.0-8.0) g/dL Albumin (3.2-4.6) g/dL Globulin g/dL Albumin/Globulin Ratio Amylase (25-115) U/L Urine Color (YELLOW) Urine Appearance (CLEAR) Urine pH (5.0-6.5) Ur Specific [place] (1.010-1.025) Urine Protein (NEGATIVE) mg/dL Urine Glucose (UA) (NORMAL) mg/dL Urine Ketones (NEGATIVE) mg/dL Urine Occult Blood (NEGATIVE) Urine Nitrite (NEGATIVE) Urine Bilirubin (NEGATIVE) Urine Urobilinogen (NEGATIVE) mg/dL Ur Leukocyte Esterase (NEGATIVE) Urine RBC (0-5) Urine WBC (0-5) Ur Squamous Epith Cells (NS,R,O) Urine Bacteria (NS) 05/29/19 05/30/19 Range/Units 21:12 06:41 WBC (4.5-12.0) X10-3/uL RBC (3.23-5.20) x10(6)uL Hgb (11.5-15.5) g/dL Hct (30.0-51.3) % MCV (80-96) fL MCH (27.7-33.6) pg MCHC (32.2-35.4) g/dL RDW (11.5-15.5) % Plt Count (125-369) X10(3)uL MPV (7.4-10.4) fL Neut % (Auto) (46-82) % Lymph % (Auto) (13-37) % [place] % (Auto) (4-12) % Eos % (Auto) (1.0-5.0) % Baso % (Auto) (0-2) % Neut # (Auto) (1.6-8.3) # Lymph # (Auto) (0.6-5.0) # [place] # (Auto) (0.0-1.3) # Eos # (Auto) (0.0-0.8) # Baso # (Auto) (0.0-0.2) # Sodium (135-145) mmol/L Potassium (3.5-5.3) mmol/L Chloride (100-110) mmol/L Carbon Dioxide (21-32) mmol/L BUN (7-18) mg/dL Creatinine (0.55-1.02) mg/dL Est Cr Clr Drug Dosing mL/min Estimated GFR (MDRD) (>60) BUN/Creatinine Ratio (9-20) Glucose (80-116) mg/dL POC Glucose 278 H 289 H (80-116) mg/dL Calcium (8.6-10.2) mg/dL Total Bilirubin (0.1-1.3) mg/dL AST (5-25) IU/L ALT (12-36) U/L Alkaline Phosphatase (56-112) IU/L Troponin I (<0.017-0.056) ng/mL C-Reactive Protein (0.5-0.9) mg/dL Total Protein (6.0-8.0) g/dL Albumin (3.2-4.6) g/dL Globulin g/dL Albumin/Globulin Ratio Amylase (25-115) U/L Urine Color (YELLOW) Urine Appearance (CLEAR) Urine pH (5.0-6.5) Ur Specific [place] (1.010-1.025) Urine Protein (NEGATIVE) mg/dL Urine Glucose (UA) (NORMAL) mg/dL Urine Ketones (NEGATIVE) mg/dL Urine Occult Blood (NEGATIVE) Urine Nitrite (NEGATIVE) Urine Bilirubin (NEGATIVE) Urine Urobilinogen (NEGATIVE) mg/dL Ur Leukocyte Esterase (NEGATIVE) Urine RBC (0-5) Urine WBC (0-5) Ur Squamous Epith Cells (NS,R,O) Urine Bacteria (NS) Med Orders - Current: Current Medications Benazepril HCl (Lotensin) 20 mg PO DAILY [facility] Hydromorphone HCl (Dilaudid) 0.5 mg IVPUSH Q2H PRN PRN Reason: Pain (severe 7-10) Last Admin: 05/30/19 03:19 Dose: 0.5 mg Sodium Chloride (Normal Saline) 1,000 mls @ 150 mls/hr IV ASDIRECTED [facility] Last Admin: 05/30/19 03:12 Dose: 150 mls/hr Piperacillin Sod/Tazobactam (Sod 3.375 gm/ Sodium Chloride) 50 mls @ 100 mls/ hr IV Q6H [facility] Last Admin: 05/30/19 03:59 Dose: 100 mls/hr Medroxyprogesterone (10mg) 0 each PO DAILY [facility] Ondansetron HCl (Zofran) 4 mg IV Q6H PRN PRN Reason: Nausea/Vomiting Sodium Chloride (Saline Flush) 10 ml FLUSH ASDIRECTED PRN PRN Reason: Keep Vein Open Last Admin: 05/29/19 09:16 Dose: 10 ml Discontinued Medications Fentanyl (Sublimaze) 50 mcg IVPUSH ONETIME ONE Stop: 05/29/19 08:47 Last Admin: 05/29/19 09:14 Dose: 50 mcg Hydromorphone HCl (Dilaudid) 1 mg IVPUSH ONETIME ONE Stop: 05/29/19 12:31 Last Admin: 05/29/19 12:45 Dose: 1 mg Sodium Chloride (Normal Saline) 1,000 mls @ 999 mls/hr IV .BOLUS ONE Stop: 05/29/19 09:46 Last Admin: 05/29/19 09:12 Dose: 999 mls/hr Piperacillin Sod/Tazobactam (Sod 3.375 gm/ Sodium Chloride) 50 mls @ 100 mls/ hr IV Q6H [facility]ANA Last Admin: 05/29/19 21:33 Dose: Not Given Ondansetron HCl (Zofran) 4 mg IVPUSH ONETIME ONE Stop: 05/29/19 08:47 Last Admin: 05/29/19 09:12 Dose: 4 mg - Exam General: Alert, Oriented, Cooperative Lungs: Normal Respiratory Effort GI/Abdominal Exam: Other (Pain right upper quadrant on palpation) - Problem List & Annotations (1) Cholecystitis SNOMED Code(s): 28871712 Code(s): K81.9 - CHOLECYSTITIS, UNSPECIFIED Status: Acute Current Visit: Yes - Problem List Review Problem List Initiated/Reviewed/Updated: Yes - My Orders Last 24 Hours: My Active Orders 05/30/19 09:00 Benazepril [Lotensin] 20 mg PO DAILY Non-Formulary Medication [NF Drug] 0 each PO DAILY - Plan Plan:: 1. Dr. Kaplan will do a cholecystectomy today and assume care for the patient
[2019-05-30] MEDS: Lactated Ringers 1,000 ML IV SCH ×2 (09:00→18:13)
--- NOTE | 2019-05-30 10:54 | PCM.OPNOTE ---
- General Post-Op/Procedure Note Date of Surgery/Procedure: 05/30/19 Operative Procedure(s): Lap evens Findings: Acute cholecystitis and Cholelithiasis Pre Op Diagnosis: Above Post-Op Diagnosis: same Anesthesia Technique: General ET Tube Primary Surgeon: Jona Kaplan EBL in mLs: 100 Complications: None Condition: Good Free Text/Narrative:: Intake & Output 05/29/19 05/30/19 05/30/19 22:59 06:59 14:59 Intake Total 1390 219 Output Total 727 545 100 Balance 665 -184 119
--- NOTE | 2019-05-30 11:46 | OR ---
DATE OF OPERATION: 05/30/2019 SURGEON: Jona Kaplan MD PREOPERATIVE DIAGNOSIS: Acute cholecystitis and cholelithiasis. POSTOPERATIVE DIAGNOSIS: Acute cholecystitis and cholelithiasis. PROCEDURE: Laparoscopic cholecystectomy. ANESTHESIA: General. PROCEDURE IN DETAIL: The patient was brought to the operating room, where general endotracheal anesthesia was administered. The abdomen was prepped with ChloraPrep and draped sterilely. An infraumbilical incision was made and extended into the peritoneal cavity without difficulty. The Hector cannulator was introduced and pneumoperitoneum obtained. Visualization was difficult because of much omentum and mesenteric fat. She was placed in reverse Trendelenburg position and rotated to the left. The remaining three 5 mm ports were placed in the usual positions. Intraabdominal pressure was increased from 15 to 20 mm of CO2 gas during the procedure to help with visualization. The gallbladder was tense and unable to be grasped. This was aspirated with a trocar. Clear green bile was obtained and was not sent for culture. The gallbladder was acutely inflamed and edematous. This was now able to be grasped and retracted cephalad with some difficulty because of its proximity to the ribs. This allowed only minimal retraction, which made dissection more difficult. I was able to isolate the cystic artery without difficulty and clearly identify this coursing onto the gallbladder. The cystic duct was more difficult to see since it was not able to be stretched out. By doubly clipping the cystic artery proximally and once distally and then transecting there, I was able to get some better exposure. The gallbladder was dissected free at its base circumferentially onto the bed of the liver. Cystic duct was visible and seen entering the gallbladder and extending towards the common bile duct. This was milked back into the gallbladder, then doubly clipped proximally and once distally and then transected. The gallbladder was removed from the bed of the liver using electrocautery. There were some oozing from small vessels that were either cauterized or clipped. Once the gallbladder was completely freed up, was brought out through the umbilical incision. A right upper quadrant was thoroughly irrigated and inspected and return was clear and hemostasis assured. Because of the oozing during the case, I did place a Nu-Knit Surgicel in the bed of the liver. The ports were removed under direct vision and remained hemostatic. Umbilical fascia was closed with [id number] #0 Vicryl. Skin was closed with #4-0 Vicryl subcuticular sutures. Benzoin and Steri-Strips were placed and Band-Aids applied. The patient tolerated the procedure well. ESTIMATED BLOOD LOSS: 100 mL. She returned to postanesthesia in stable condition. /[id number] JANICE/ARETHA CALI
[2019-05-30] MEDS: MEDROXYPROGESTERONE 10 MG PO SCH (12:21)
[2019-05-30] MEDS: Sodium Chloride 0.9% 10 ML Syringe FLUSH PRN (12:25)
[2019-05-30] MEDS: Acetaminophen/HYDROcodone 325-5 MG Tab PO PRN ×2 (17:09→21:00)
[2019-05-31] MEDS: Acetaminophen/HYDROcodone 325-5 MG Tab PO PRN ×3 (01:31→09:56)
[2019-05-31] MEDS: Lactated Ringers 1,000 ML IV SCH (01:32)
[2019-05-31] MEDS: MEDROXYPROGESTERONE 10 MG PO SCH (08:18)
--- NOTE | 2019-05-31 11:19 | PCM.SURGPN ---
- General Info Date of Service: 05/31/19 POD#: 1 Functional Status: Reports: Pain Controlled, Tolerating Diet, Ambulating, Urinating - Review of Systems General: Reports: No Symptoms Pulmonary: Reports: No Symptoms Gastrointestinal: Reports: No Symptoms - Patient Data Vitals - Most Recent: Last Vital Signs Temp 98.6 F 05/31/19 04:22 Pulse 102 H 05/31/19 04:22 Resp 20 05/31/19 04:22 BP 120/72 05/31/19 08:17 Pulse Ox 95 05/31/19 04:22 Weight - Most Recent: 126.144 kg I&O - Last 24 Hours: Intake & Output 05/30/19 05/31/19 05/31/19 22:59 06:59 14:59 Intake Total 330 Output Total 2275 300 225 Balance -1945 -300 -225 Lab Results Last 24 Hrs: Laboratory Results - last 24 hr 05/30/19 05/30/19 05/31/19 Range/Units 16:08 21:45 06:37 POC Glucose 285 H 287 H 251 H (80-116) mg/dL Med Orders - Current: Current Medications Hydrocodone Bitart/Acetaminophen ([place] 325-5 Mg) 1 tab PO Q4H PRN PRN Reason: Pain (mild 1-3) Last Admin: 05/31/19 09:56 Dose: 1 tab Benazepril HCl (Lotensin) 20 mg PO DAILY [facility] Last Admin: 05/31/19 08:17 Dose: 20 mg Hydromorphone HCl (Dilaudid) 0.5 mg IVPUSH Q2H PRN PRN Reason: Pain (severe 7-10) Last Admin: 05/30/19 18:25 Dose: 0.5 mg Lactated Ringer's (Ringers, Lactated) 1,000 mls @ 125 mls/hr IV ASDIRECTED [facility] Last Admin: 05/31/19 01:32 Dose: 125 mls/hr Medroxyprogesterone (10mg) 0 each PO DAILY [facility] Last Admin: 05/31/19 08:18 Dose: 1 each Ondansetron HCl (Zofran) 4 mg IV Q6H PRN PRN Reason: Nausea/Vomiting Sodium Chloride (Saline Flush) 10 ml FLUSH ASDIRECTED PRN PRN Reason: Keep Vein Open Last Admin: 05/30/19 12:25 Dose: 10 ml Discontinued Medications Fentanyl (Sublimaze) 50 mcg IVPUSH ONETIME ONE Stop: 05/29/19 08:47 Last Admin: 05/29/19 09:14 Dose: 50 mcg Hydromorphone HCl (Dilaudid) 1 mg IVPUSH ONETIME ONE Stop: 05/29/19 12:31 Last Admin: 05/29/19 12:45 Dose: 1 mg Sodium Chloride (Normal Saline) 1,000 mls @ 999 mls/hr IV .BOLUS ONE Stop: 05/29/19 09:46 Last Admin: 05/29/19 09:12 Dose: 999 mls/hr Sodium Chloride (Normal Saline) 1,000 mls @ 150 mls/hr IV ASDIRECTED [facility] Last Admin: 05/30/19 03:12 Dose: 150 mls/hr Piperacillin Sod/Tazobactam (Sod 3.375 gm/ Sodium Chloride) 50 mls @ 100 mls/ hr IV Q6H [facility] Last Admin: 05/29/19 21:33 Dose: Not Given Piperacillin Sod/Tazobactam (Sod 3.375 gm/ Sodium Chloride) 50 mls @ 100 mls/ hr IV Q6H [facility] Last Admin: 05/30/19 14:38 Dose: Not Given Ondansetron HCl (Zofran) 4 mg IVPUSH ONETIME ONE Stop: 05/29/19 08:47 Last Admin: 05/29/19 09:12 Dose: 4 mg - Exam Wound/Incisions: Healing Well, Dressing Dry and Intact GI/Abdominal Exam: Soft, Non-Tender - Problem List Review Problem List Initiated/Reviewed/Updated: Yes - My Orders Last 24 Hours: Active Orders 24 hr Category Date Time Status May Shower [RC] DAILY Care 05/31/19 10:54 Active Oxygen Therapy [RC] PRN Care 05/30/19 10:54 Active RT Incentive Spirometry [RC] Q2HWA Care 05/30/19 10:54 Active Up With Assistance [RC] ASDIRECTED Care 05/30/19 10:54 Active Vital Signs [RC] PER UNIT ROUTINE Care 05/30/19 10:54 Active Low Fat Diet [DIET] Diet 05/31/19 Breakfast Active Acetaminophen/HYDROcodone [[place] 325-5 MG] Med 05/30/19 10:54 Active 1 tab PO Q4H PRN Lactated Ringers [Ringers, Lactated] 1,000 ml Med 05/30/19 11:00 Active IV ASDIRECTED Convert IV to Saline Lock [OM.PC] Routine Oth 05/31/19 08:44 Ordered Medication Orders Hydrocodone Bitart/Acetaminophen ([place] 325-5 Mg) 1 tab PO Q4H PRN PRN Reason: Pain (mild 1-3) Last Admin: 05/31/19 09:56 Dose: 1 tab Admin: 05/31/19 05:27 Dose: 1 tab Admin: 05/31/19 01:31 Dose: 1 tab Admin: 05/30/19 21:00 Dose: 1 tab Admin: 05/30/19 17:09 Dose: 1 tab Benazepril HCl (Lotensin) 20 mg PO DAILY [facility] Last Admin: 05/31/19 08:17 Dose: 20 mg Admin: 05/30/19 12:22 Dose: 20 mg Hydromorphone HCl (Dilaudid) 0.5 mg IVPUSH Q2H PRN PRN Reason: Pain (severe 7-10) Last Admin: 05/30/19 18:25 Dose: 0.5 mg Admin: 05/30/19 12:24 Dose: 0.5 mg Admin: 05/30/19 03:19 Dose: 0.5 mg Admin: 05/29/19 21:59 Dose: 0.5 mg Admin: 05/29/19 19:43 Dose: 0.5 mg Admin: 05/29/19 16:55 Dose: 0.5 mg Lactated Ringer's (Ringers, Lactated) 1,000 mls @ 125 mls/hr IV ASDIRECTED [facility] Last Admin: 05/31/19 01:32 Dose: 125 mls/hr Infusion: 05/31/19 01:32 Dose: 125 mls/hr Admin: 05/30/19 18:13 Dose: 125 mls/hr Infusion: 05/30/19 17:00 Dose: 125 mls/hr Admin: 05/30/19 09:00 Dose: 125 mls/hr Medroxyprogesterone (10mg) 0 each PO DAILY [facility] Last Admin: 05/31/19 08:18 Dose: 1 each Admin: 05/30/19 12:21 Dose: 1 each Ondansetron HCl (Zofran) 4 mg IV Q6H PRN PRN Reason: Nausea/Vomiting Sodium Chloride (Saline Flush) 10 ml FLUSH ASDIRECTED PRN PRN Reason: Keep Vein Open Last Admin: 05/30/19 12:25 Dose: 10 ml Admin: 05/29/19 09:16 Dose: 10 ml - Assessment Assessment (Free Text/Narrative):: Doing well - Plan Plan (Free Text/Narrative):: Ready for discharge
--- NOTE | 2019-05-31 11:24 | PCM.DCSUM1 ---
Discharge Summary - Hospital Course Free Text/Narrative:: Patient admitted for Acute Cholecystitis and Cholelithiasis. Underwent lap evens yesterday morning and post-op did well. Tolerating diet, pain controlled and ready for discharge - Discharge Data Discharge Date: 05/31/19 Discharge Disposition: Home, Self-Care 01 Condition: Good - Patient Summary/Data Operative Procedure(s) Performed: Lap evens Recommended Follow-up Testing/Procedures: f/u with Dr Rosaura Matthews 06/05 Hospital Course: As Above - Patient Instructions Diet, Other: Low Fat for 2 weeks Activity: No Lifting Over 20 Pounds (for 2 weeks) Showering/Bathing: March Shower Wound/Incision Care: Keep Operative Site/Wound Site Clean and Dry - Discharge Plan Home Medications: Home Meds Benazepril [Lotensin] 20 mg PO DAILY 05/29/19 [History] Naproxen 500 mg PO Q8H PRN 05/29/19 [History] medroxyPROGESTERone [Provera] 10 mg PO DAILY 05/29/19 [History] Patient Handouts: Fat and Cholesterol Restricted Eating Plan, Laparoscopic Cholecystectomy, Care After, Gallbladder Eating Plan, Cholecystitis, Easy-to- Read, Venous Thromboembolism Prevention Forms: ED Department Discharge Referrals: Sukumar Hall MD [Primary Care Provider] - - Discharge Summary/Plan Comment DC Time >30 min.: No - Patient Data Vitals - Most Recent: Last Vital Signs Temp 98.6 F 05/31/19 04:22 Pulse 102 H 05/31/19 04:22 Resp 20 05/31/19 04:22 BP 120/72 05/31/19 08:17 Pulse Ox 95 05/31/19 04:22 Weight - Most Recent: 126.144 kg I&O - Last 24 hours: Intake & Output 05/30/19 05/31/19 05/31/19 22:59 06:59 14:59 Intake Total 330 Output Total 2275 300 225 Balance -5 -300 -225 Lab Results - Last 24 hrs: Laboratory Results - last 24 hr 05/30/19 05/30/19 05/31/19 Range/Units 16:08 21:45 06:37 POC Glucose 285 H 287 H 251 H (80-116) mg/dL Med Orders - Current: Current Medications Hydrocodone Bitart/Acetaminophen ([place] 325-5 Mg) 1 tab PO Q4H PRN PRN Reason: Pain (mild 1-3) Last Admin: 05/31/19 09:56 Dose: 1 tab Benazepril HCl (Lotensin) 20 mg PO DAILY [facility] Last Admin: 05/31/19 08:17 Dose: 20 mg Hydromorphone HCl (Dilaudid) 0.5 mg IVPUSH Q2H PRN PRN Reason: Pain (severe 7-10) Last Admin: 05/30/19 18:25 Dose: 0.5 mg Lactated Ringer's (Ringers, Lactated) 1,000 mls @ 125 mls/hr IV ASDIRECTED [facility] Last Admin: 05/31/19 01:32 Dose: 125 mls/hr Medroxyprogesterone (10mg) 0 each PO DAILY [facility] Last Admin: 05/31/19 08:18 Dose: 1 each Ondansetron HCl (Zofran) 4 mg IV Q6H PRN PRN Reason: Nausea/Vomiting Sodium Chloride (Saline Flush) 10 ml FLUSH ASDIRECTED PRN PRN Reason: Keep Vein Open Last Admin: 05/30/19 12:25 Dose: 10 ml Discontinued Medications Fentanyl (Sublimaze) 50 mcg IVPUSH ONETIME ONE Stop: 05/29/19 08:47 Last Admin: 05/29/19 09:14 Dose: 50 mcg Hydromorphone HCl (Dilaudid) 1 mg IVPUSH ONETIME ONE Stop: 05/29/19 12:31 Last Admin: 05/29/19 12:45 Dose: 1 mg Sodium Chloride (Normal Saline) 1,000 mls @ 999 mls/hr IV .BOLUS ONE Stop: 05/29/19 09:46 Last Admin: 05/29/19 09:12 Dose: 999 mls/hr Sodium Chloride (Normal Saline) 1,000 mls @ 150 mls/hr IV ASDIRECTED [facility] Last Admin: 05/30/19 03:12 Dose: 150 mls/hr Piperacillin Sod/Tazobactam (Sod 3.375 gm/ Sodium Chloride) 50 mls @ 100 mls/ hr IV Q6H [facility] Last Admin: 05/29/19 21:33 Dose: Not Given Piperacillin Sod/Tazobactam (Sod 3.375 gm/ Sodium Chloride) 50 mls @ 100 mls/ hr IV Q6H [facility] Last Admin: 05/30/19 14:38 Dose: Not Given Ondansetron HCl (Zofran) 4 mg IVPUSH ONETIME ONE Stop: 05/29/19 08:47 Last Admin: 05/29/19 09:12 Dose: 4 mg
[2019-05-31] MEDS ORDERED: Propofol 200 MG/20 ML SDV IV ONE (12:52)
[2019-05-31] MEDS ORDERED: Rocuronium 100 MG/10 ML MDV IV ONE (12:52)
[2019-05-31] MEDS ORDERED: Acetaminophen/HYDROcodone 325-5 MG Tab PO ONE (12:52)
[2019-05-31] MEDS ORDERED: Sugammadex Sodium 200 MG/2 ML VIAL IV ONE (12:52)
[2019-05-31] MEDS ORDERED: Lactated Ringers 1,000 ML IV ONE (12:52)
[2019-05-31] MEDS ORDERED: Midazolam 1 MG/ML 2 ML SDV IV ONE (12:52)
[2019-05-31] MEDS ORDERED: Labetalol 100 MG/20 ML MDV IV ONE (12:52)
[2019-05-31] MEDS ORDERED: Dexamethasone 4 MG/ML 5 ML MDV IVPUSH ONE (12:52)
[2019-05-31] MEDS ORDERED: Ondansetron 4 MG/2 ML SDV IVPUSH ONE (12:52)
[2019-05-31] MEDS ORDERED: Lidocaine 2% 100 MG/5 ML Syringe IVPUSH ONE (12:52)
[2019-05-31] MEDS ORDERED: Dexmedetomidine 200 MCG/2 ML SDV IV ONE (12:52)
[2019-05-31] MEDS ORDERED: fentaNYL 100 MCG/2 ML SDV IV ONE (12:52)
[2019-05-31] MEDS ORDERED: HYDROmorphone 2 MG/ML SDV IV ONE (12:52)
== END 2019-05-31 12:53 | disposition home or self-care (01) ==
LOC: FB.ED 07:39 → FB.MS 11:48
PROVIDERS: ADMIT Family Medicine; ATTEND Surgery
DX: K80.00 Calculus of gallbladder with acute cholecystitis without obstruction (principal); I10 Essential (primary) hypertension; E11.9 Type 2 diabetes mellitus without complications; E66.9 Obesity, unspecified; J45.909 Unspecified asthma, uncomplicated; K21.9 Gastro-esophageal reflux disease without esophagitis; G47.33 Obstructive sleep apnea (adult) (pediatric); F41.9 Anxiety disorder, unspecified; F41.0 Panic disorder [episodic paroxysmal anxiety]; Z79.899 Other long term (current) drug therapy
CPT/HCPCS: 00790; 36415; 47562; 76705; 80053; 81001; 82150; 82962; 84484; 85025; 86140; 88304; 93005; 94150; 96361; 96365; 96366; 96375; 96376; 99284; A9270; G0378; J0131; J1100; J1170; J2001; J2250; J2405; J2543; J2704; J3010; J3490; J7030; J7050; J7120; 96374

== ENCOUNTER 2021-09-09 07:45 | Emergency (ER) | payer MEDICAID ==
--- NOTE | 2021-09-09 08:10 | EDM.PDOC ---
ED HPI GENERAL MEDICAL PROBLEM - General Stated Complaint: HIGH PULSE RATE Time Seen by Provider: 09/09/21 08:05 Source of Information: Reports: Patient History Limitations: Reports: No Limitations - History of Present Illness INITIAL COMMENTS - FREE TEXT/NARRATIVE: 60-year-old female who reports at approximately 7:45 AM yesterday she noted that her heart rate was fast. She had felt this start at this time and she felt that her heart was fluttering in her chest and she has a pulse oximeter at home and noted that her heart rate was in the 1 6170 range. She states that over the past 2 months she has intermittently had fast heart rate but it would only last at the very longest one to 2 hours and then it would resolve spontaneously on its own. She states that she increased her fluid intake and rested but her pulse rate stayed in the 170 range. She did have some mild tightness across her chest that she rated as a 2/10. This seemed to wax and wane but was pretty much continuously present since yesterday morning. She had no nausea or vomiting associated with this. She did have some feelings of shortness of breath off and on. She has had no nausea or vomiting. She has been eating and drinking n ormally. In fact, she really increased her fluid intake over the past 24 hours. She has had increased urination but no dysuria or hematuria. No cough. No nausea or vomiting. No abdominal pain. No cough. No fevers or chills. There are no other associated signs or symptoms. There are no other modifying factors.. Onset: Other (Yesterday at 7:45 AM.) Duration: Constant Location: Reports: Chest Quality: Reports: Ache Severity: Mild Improves with: Reports: None Worsens with: Reports: None Context: Reports: Other (As above.) Associated Symptoms: Reports: No Other Symptoms Treatments CREDIT REVIEW OFFICER: Reports: Home Treatments Chest Pain Score (Numeric/FACES): 0 - Related Data Allergies Allergy/AdvReac Type Severity Reaction Status Date / Time No Known Allergies Allergy Verified 09/09/21 08:30 Home Meds: Home Meds Benazepril [Lotensin] 20 mg PO DAILY 05/29/19 [History] Naproxen 500 mg PO Q8H PRN 05/29/19 [History] medroxyPROGESTERone [Provera] 10 mg PO DAILY 05/29/19 [History] Past Medical History Cardiovascular History: Reports: High Cholesterol, Hypertension Respiratory History: Reports: Asthma, Sleep Apnea Other Respiratory History: pt has sleep apnea as verbalized by daughter Gastrointestinal History: Reports: GERD, Irritable Bowel Syndrome Genitourinary History: Reports: Other (See Below) Other Genitourinary History: cervical hyperplasia ARRANGER ASSEMBLER History: Reports: Other (See Below) Other ARRANGER ASSEMBLER History: cervical hyperplasia Musculoskeletal History: Reports: Fibromyalgia Other Musculoskeletal History: fibromyalgia Neurological History: Reports: Migraines Other Neuro History: and tension headache from fibromyalgia Psychiatric History: Reports: Anxiety, Depression - Past Surgical History HEENT Surgical History: Reports: Oral Surgery (Keller teeth extraction) GI Surgical History: Reports: Cholecystectomy Social & Family History - Tobacco Use Tobacco Use Status *Q: Unknown Ever Used Tobacco (Nonsmoker) - Caffeine Use Caffeine Use: Reports: Soda Caffeine Use Comment: seldom drinks soda or coffee - Alcohol Use Alcohol Use History: No - Living Situation & Occupation Living situation: Reports: with Family ED ROS GENERAL - Review of Systems Review Of Systems: See Below Constitutional: Denies: Fever, Chills, Diaphoresis, Decreased Appetite HEENT: Reports: Other. Denies: Throat Pain Respiratory: Denies: Shortness of Breath, Cough (No nasal congestion) Cardiovascular: Reports: Chest Pain, Palpitations Endocrine: Reports: Fatigue GI/Abdominal: Denies: Abdominal Pain, Anorexia, Decreased Appetite, Nausea, Vomiting : Denies: Dysuria, Hematuria Musculoskeletal: Reports: Muscle Pain ([place] diffuse related to her fibromyalgia.). Denies: Shoulder Pain, Back Pain Skin: Denies: Diaphoresis, Rash Neurological: Reports: Dizziness, Headache Psychiatric: Reports: Anxiety Hematologic/Lymphatic: Denies: Easy Bleeding, Easy Bruising ED EXAM, GENERAL - Physical Exam Exam: See Below Exam Limited By: No Limitations General Appearance: Alert, Obese, Other Eye Exam: Bilateral Eye: EOMI, Normal Inspection, PERRL Ears: Normal External Exam, Hearing Loss Ear Exam: Bilateral Ear: Auricle Normal Nose: Normal Inspection, Normal Mucosa, No Blood Throat/Mouth: Normal Voice, No Airway Compromise, Other (Somewhat dry mucous membranes.) Head: No: Facial Swelling, Facial Tenderness Neck: Normal Inspection, Supple, Non-Tender, Full Range of Motion Respiratory/Chest: No Respiratory Distress, Lungs Clear, Normal Breath Sounds, No Accessory Muscle Use, Chest Non-Tender Cardiovascular: Normal Peripheral Pulses, Tachycardia Peripheral Pulses: 2+: Radial (L), Radial (R), Dorsalis Pedis (L), Dorsalis Pedis (R) GI/Abdominal: Normal Bowel Sounds, Soft, Non-Tender, No Mass Back Exam: Normal Inspection, Full Range of Motion Extremities: Normal Capillary Refill, Pedal Edema (Left greater than right) Neurological: Alert, Oriented, CN II-XII Intact, No Motor/Sensory Deficits Psychiatric: Anxious Skin Exam: Warm, Dry, Intact, Normal Color, No Rash, Diaphoretic, Lymphangitis #1 Interpretation EKG Date: 09/09/21 Time: 07:56 Rhythm: Other (Tachycardia, SVT versus a flutter) Rate (Beats/Min): 172 [place]: LAD-Left [place] Deviation P-Wave: Present QRS: Normal ST-T: Other (Diffuse nonspecific T-wave abnormalities.) QT: Prolonged (Prolonged QTc.) Comparison: Change From Previous EKG (Compared to an EKG performed on 05/29/2019, the tachycardia is new.) #2 Interpretation EKG Date: 09/09/21 Time: 09:01 Rhythm: NSR Rate (Beats/Min): 102 [place]: LAD-Left [place] Deviation P-Wave: Present QRS: Normal ST-T: Other (Slight inferior T-wave abnormalities, nonspecific.) Comparison: Change From Previous EKG (Compared to previous EKG done today the SVT/A. fib flutter has resolved.) Course - Vital Signs Last Recorded V/S: Last Vital Signs Temp 36.9 C 09/09/21 10:30 Pulse 99 09/09/21 10:30 Resp 18 09/09/21 10:30 BP 119/73 09/09/21 10:30 Pulse Ox 97 09/09/21 10:30 - Orders/Labs/Meds Orders: Active Orders 24 hr Category Date Time Status Chest 1V Frontal [CR] Stat Exams 09/09/21 08:24 Taken Peripheral IV Insertion Adult [OM.PC] Routine Oth 09/09/21 08:22 Ordered EKG 12 Lead [EK] Routine Ther 09/09/21 08:22 Ordered EKG 12 Lead [EK] Routine Ther 09/09/21 08:59 Ordered Labs: Laboratory Tests 09/09/21 09/09/2121 Range/Units 08:33 08:33 08:33 WBC 7.0 (3.0-10.3) x10-3/uL RBC 5.50 H (3.60-5.20) x10(6)uL Hgb 15.3 (11.4-15.5) g/dL Hct 48.5 H (34.2-48.2) % MCV 88.2 (76.7-100.5) fL MCH 27.9 (23.9-33.9) pg MCHC 31.6 L (31.9-34.8) g/dL RDW 15.0 (12.3-16.5) % Plt Count 167 (151-488) x10(3)uL MPV 8.3 (7.1-12.4) fL Neut % (Auto) 56.3 (30.8-76.2) % Lymph % (Auto) 34.1 (18.4-52.1) % [place] % (Auto) 8.2 (4.4-15.7) % Eos % (Auto) 0.9 (0.6-8.1) % Baso % (Auto) 0.5 (0.2-1.5) % Neut # (Auto) 4.0 (1.5-6.3) x10-3/uL Lymph # (Auto) 2.4 (1.0-4.4) x10-3/uL [place] # (Auto) 0.6 (0.3-1.0) x10-3/uL Eos # (Auto) 0.1 (0.0-0.8) x10-3/uL Baso # (Auto) 0.0 (0.0-0.1) x10-3/uL D-Dimer, Quantitative (0.0-0.59) mg/LFEU Sodium 142 (135-145) mmol/L Potassium 4.6 (3.5-5.3) mmol/L Chloride 107 D (100-110) mmol/L Carbon Dioxide 25 (21-32) mmol/L BUN 13 (7-18) mg/dL Creatinine 0.8 (0.55-1.02) mg/dL Est Cr Clr Drug Dosing TNP Estimated GFR (MDRD) > 60 (>60) BUN/Creatinine Ratio 16.3 (9-20) Glucose 275 H D (80-116) mg/dL Calcium 8.7 (8.6-10.2) mg/dL Magnesium 2.0 (1.8-2.5) mg/dL Total Bilirubin 0.7 (0.1-1.3) mg/dL AST 19 D (5-25) IU/L ALT 38 H D (12-36) U/L Alkaline Phosphatase 134 H (56-112) IU/L Troponin I 6.4 (4.0-60.3) pg/mL Total Protein 7.0 (6.0-8.0) g/dL Albumin 3.3 (3.2-4.6) g/dL Globulin 3.7 g/dL Albumin/Globulin Ratio 0.9 09/09/21 Range/Units 08:33 WBC (3.0-10.3) x10-3/uL RBC (3.60-5.20) x10(6)uL Hgb (11.4-15.5) g/dL Hct (34.2-48.2) % MCV (76.7-100.5) fL MCH (23.9-33.9) pg MCHC (31.9-34.8) g/dL RDW (12.3-16.5) % Plt Count (151-488) x10(3)uL MPV (7.1-12.4) fL Neut % (Auto) (30.8-76.2) % Lymph % (Auto) (18.4-52.1) % [place] % (Auto) (4.4-15.7) % Eos % (Auto) (0.6-8.1) % Baso % (Auto) (0.2-1.5) % Neut # (Auto) (1.5-6.3) x10-3/uL Lymph # (Auto) (1.0-4.4) x10-3/uL [place] # (Auto) (0.3-1.0) x10-3/uL Eos # (Auto) (0.0-0.8) x10-3/uL Baso # (Auto) (0.0-0.1) x10-3/uL D-Dimer, Quantitative 0.41 (0.0-0.59) mg/LFEU Sodium (135-145) mmol/L Potassium (3.5-5.3) mmol/L Chloride (100-110) mmol/L Carbon Dioxide (21-32) mmol/L BUN (7-18) mg/dL Creatinine (0.55-1.02) mg/dL Est Cr Clr Drug Dosing Estimated GFR (MDRD) (>60) BUN/Creatinine Ratio (9-20) Glucose (80-116) mg/dL Calcium (8.6-10.2) mg/dL Magnesium (1.8-2.5) mg/dL Total Bilirubin (0.1-1.3) mg/dL AST (5-25) IU/L ALT (12-36) U/L Alkaline Phosphatase (56-112) IU/L Troponin I (4.0-60.3) pg/mL Total Protein (6.0-8.0) g/dL Albumin (3.2-4.6) g/dL Globulin g/dL Albumin/Globulin Ratio Meds: Medications Discontinued Medications Generic Name Dose Route Start Last Admin Trade Name Freq PRN Reason Stop Dose Admin Adenosine 12 mg 09/09/21 08:23 09/09/21 08:30 Adenosine 6 Mg/2 Ml Sdv IVPUSH 09/09/21 08:24 12 mg NOW ONE Administration Adenosine Confirm 09/09/21 08:39 09/09/21 18:58 Adenosine 6 Mg/2 Ml Sdv Administered 09/09/21 08:40 Not Given Dose 12 mg .ROUTE .STK-MED ONE Adenosine 12 mg 09/09/21 10:07 09/09/21 08:39 Adenosine 6 Mg/2 Ml Sdv IVPUSH 09/09/21 10:08 12 mg NOW ONE Administration Sodium Chloride 1,000 mls @ 125 mls/hr 09/09/21 08:30 09/09/21 08:30 Normal Saline IV 125 mls/hr ASDIRECTED BRIANA Administration Sodium Chloride 10 ml 09/09/21 08:22 Sodium Chloride 0.9% 10 Ml Syringe FLUSH ASDIRECTED PRN Keep Vein Open - Radiology Interpretation Free Text/Narrative:: Portable chest x-ray showed no acute disease. - Re-Assessments/Exams Free Text/Narrative Re-Assessment/Exam: 09/09/21 08:45: After informed verbal consent, the patient was given adenosine 12 mg IV 2. The first episode the patient's heart rate slowed down to the 130s and then went back to the 170 range. We repeated the adenosine 12 mg IV and I continually monitored the tracings while this was occurring and what was present was atrial flutter waves and her heart rate did decreased to the 130s transiently and then back up to the 170s. The patient remained awake and alert during this. She has remained hemodynamically stable. Following this she was complaining of some left-sided chest tightness and discomfort. Labs and x-rays were pending at this point. All the DATA SECURITY ANALYST to come and help with IV procedural sedation so that we could proceed with DC synchronized cardioversion. I discussed all this with the patient and explained her the risk and benefits associated with DC synchronized cardioversion and procedural sedation and she is agreeing for us to proceed with these procedures. 09/09/21 09:05: Patient's heart rate decreased to the 100-110 range. And I had the nursing staff repeat the EKG which showed now that she is in a sinus rhythm with a rate of 102. Still has some mild chest tightness and comes and goes. She feels much better however. This point, she will no longer need cardioversion. All of the patient's blood tests were reassuring except for a glucose of 275. This evidently, her troponin was normal. Her electrolytes are normal. The patient will be treated for a period of time and then she will be stable for discharge. 09/09/21 10:04: Patient's heart rate is in the 90-100 range. She feels much improved. The d-dimer is normal. A portable chest x-ray is normal as well. I discussed with the patient and she is having no dysuria. She does admit that she has been having polydipsia and polyuria for some time now. That his in keeping with her blood sugars being elevated and she will need to follow-up with her primary provider at the [facility] in [place] this next week. I told her to call to arrange that on Saturday of this coming week. Departure - Departure Time of Disposition: 10:10 Disposition: Home, Self-Care 01 Condition: Good (Improved) Clinical Impression: Diabetes mellitus type 2 in obese Atrial flutter Qualifiers: Atrial flutter type: unspecified Qualified Code(s): I48.92 - Unspecified atrial flutter Instructions: Type 2 Diabetes Mellitus, Self-Care, Adult, [id number] Referrals: PCP,None [Primary Care Provider] - Forms: ED Department Discharge Additional Instructions: You had an abnormal heart rate that I felt was atrial flutter. This is an abnormal beating of the top part of the heart it converted while you were in the emergency Department back to a normal rhythm. He also had an elevated blood glucose to 275. I think this explains why you have been being very thirsty and having increased urine output since the spring of this year. I feel that your diabetes has not been controlled very well. He needs to avoid any concentrated sweets. You should increase your fluid intake. You need to follow-up with your primary doctor or at [facility] in [place] this coming week. You should call on Saturday to arrange an appointment. Back to the emergency department for uncontrolled, fast heart rate, chest pain, worse breathing or any other concerning signs or symptoms. Sepsis Event Note (ED) - Focused Exam Vital Signs: Vital Signs Temp Pulse Resp BP Pulse Ox 09/09/21 10:30 36.9 C 99 18 119/73 97 - My Orders Last 24 Hours: My Active Orders 09/09/21 08:22 Peripheral IV Insertion Adult [OM.PC] Routine EKG 12 Lead [EK] Routine 09/09/21 08:24 Chest 1V Frontal [CR] Stat 09/09/21 08:59 EKG 12 Lead [EK] Routine - Assessment/Plan Last 24 Hours: My Active Orders 09/09/21 08:22 Peripheral IV Insertion Adult [OM.PC] Routine EKG 12 Lead [EK] Routine 09/09/21 08:24 Chest 1V Frontal [CR] Stat 09/09/21 08:59 EKG 12 Lead [EK] Routine
[2021-09-09] MEDS ORDERED: Sodium Chloride 0.9% 10 ML Syringe FLUSH PRN (08:22)
[2021-09-09] MEDS ORDERED: Adenosine 6 MG/2 ML SDV IVPUSH ONE ×2 (08:23→10:07)
[2021-09-09] MEDS ORDERED: Sodium Chloride 0.9% 1,000 ML IV SCH (08:30)
[2021-09-09] MEDS ORDERED: Adenosine 6 MG/2 ML SDV ONE (08:39)
--- NOTE | 2021-09-11 12:21 | CR ---
CHEST ONE VIEW INDICATION: Fast heart rate. FINDINGS: AP portable upright view of the chest was obtained 09/09/21 - no comparisons. The heart did not appear grossly enlarged. What appears to be a fat pad is noted on the left. Overlying EKG leads noted. Aorta is tortuous with question of minimal calcification in the arch. A definite active infiltrate or effusion was not identified. IMPRESSION: No definite acute process, but difficult to exclude patchy bronchial pneumonia at the lung base on the left due to the overlying heart and fat pad. Somewhat heavy markings are seen in that area. Likely these are fibrotic - correlate clinically. MTDD
== END 2021-09-09 10:45 | disposition home or self-care (01) ==
LOC: FB.ED 07:45
DX: I48.92 Unspecified atrial flutter (principal); E11.9 Type 2 diabetes mellitus without complications; E78.00 Pure hypercholesterolemia, unspecified; I10 Essential (primary) hypertension
CPT/HCPCS: 36415; 71045; 80053; 83735; 84484; 85025; 85379; 93005; 96374; 99285-25; J0153; J7030

== ENCOUNTER 2021-09-10 13:06 | Emergency (ER) | payer MEDICAID ==
[2021-09-10] MEDS ORDERED: Diltiazem 25 MG/5 ML SDV IVPUSH ONE (13:32)
[2021-09-10] MEDS ORDERED: Diltiazem 240 MG Cap.ER PO ONE (14:40)
--- NOTE | 2021-09-10 14:43 | EDM.PDOC ---
ED HPI GENERAL MEDICAL PROBLEM - General Chief Complaint: Cardiovascular Problem Stated Complaint: RAPID HEART RATE/TINGLY Time Seen by Provider: 09/10/21 13:06 Source of Information: Reports: Patient History Limitations: Reports: No Limitations - History of Present Illness INITIAL COMMENTS - FREE TEXT/NARRATIVE: c/o SVT new onset SVT yesterday, broke to SR after adenosine x 2, labs neg except inc'd BS, has "diet-controlled" DM in past 2y altho advised she will need meds little caffeine, 1/2 can pop weekly here with daughter SVT again at home with HR 80-150, spoke to me on phone and advised to come to ED, pt did not have a reliable car to drive to [place], is planning on seeing cardiology locally when they are here once a month (if possible) never smoke, no previous CV problems no change in home meds yesterday pt broke SVT to NSR after 20 mg IV dilt here, will continue on dilt, BP 117/67 after dilt, on ACEI, advised she will need to monitor BP at home (prior BP cuff broken, pt plans to replace) no CP, does have usual fibromyalgia pain no n/v, no f/c/d - Related Data Allergies Allergy/AdvReac Type Severity Reaction Status Date / Time No Known Allergies Allergy Verified 09/10/21 13:32 Home Meds: Home Meds Benazepril [Lotensin] 20 mg PO DAILY 05/29/19 [History] Naproxen 500 mg PO Q8H PRN 05/29/19 [History] medroxyPROGESTERone [Provera] 10 mg PO DAILY 05/29/19 [History] Diltiazem HCl [Diltiazem 24Hr Cd] 240 mg PO DAILY #30 cap.er.24h 09/10/21 [Rx] Past Medical History Cardiovascular History: Reports: High Cholesterol, Hypertension Respiratory History: Reports: Asthma, Sleep Apnea Other Respiratory History: pt has sleep apnea as verbalized by daughter Gastrointestinal History: Reports: GERD, Irritable Bowel Syndrome Genitourinary History: Reports: Other (See Below) Other Genitourinary History: cervical hyperplasia FLEECER History: Reports: , Other (See Below) Other FLEECER History: cervical hyperplasia Musculoskeletal History: Reports: Fibromyalgia Other Musculoskeletal History: fibromyalgia Neurological History: Reports: Migraines Other Neuro History: and tension headache from fibromyalgia Psychiatric History: Reports: Anxiety, Depression Endocrine/Metabolic History: Reports: Diabetes, Type II - Infectious Disease History Infectious Disease History: Reports: Chicken Pox - Past Surgical History HEENT Surgical History: Reports: Oral Surgery ([place] teeth extraction) GI Surgical History: Reports: Cholecystectomy Social & Family History - Family History Family Medical History: No Pertinent Family History HEENT: Reports: Impaired Vision - Caffeine Use Caffeine Use: Reports: Soda Caffeine Use Comment: seldom drinks soda or coffee - Living Situation & Occupation Living situation: Reports: with Family ED ROS GENERAL - Review of Systems Review Of Systems: See Below Constitutional: Reports: No Symptoms HEENT: Reports: No Symptoms Respiratory: Reports: No Symptoms Cardiovascular: Reports: Palpitations. Denies: Chest Pain Endocrine: Reports: No Symptoms GI/Abdominal: Reports: No Symptoms : Reports: No Symptoms Musculoskeletal: Reports: No Symptoms Skin: Reports: No Symptoms Neurological: Reports: No Symptoms Psychiatric: Reports: No Symptoms Hematologic/Lymphatic: Reports: No Symptoms Immunologic: Reports: No Symptoms ED EXAM, GENERAL - Physical Exam Exam: See Below Exam Limited By: No Limitations General Appearance: Alert, WD/WN, Other (anxious, pleasant, nonill, cooperative) Throat/Mouth: Normal Inspection, Normal Lips, Normal Voice, No Airway Compromise Head: Atraumatic, Normocephalic Neck: Normal Inspection, Supple, Non-Tender, Full Range of Motion. No: Lymphadenopathy (R), Lymphadenopathy (L) Respiratory/Chest: No Respiratory Distress, Lungs Clear, No Accessory Muscle Use Cardiovascular: Regular Rate, Rhythm, No Murmur, Tachycardia, Other (trace pretib edema b/l and symmetric) GI/Abdominal: Soft, Non-Tender, No Distention Back Exam: Normal Inspection, Full Range of Motion Extremities: Normal Range of Motion, Non-Tender, No Pedal Edema Neurological: Alert, Oriented, CN II-XII Intact, Normal Cognition, No Motor/Sensory Deficits Psychiatric: Normal Affect, Normal Mood Skin Exam: Warm, Dry, Intact, Normal Color, No Rash Lymphatic: No Adenopathy #1 Interpretation EKG Date: 09/10/21 Time: 13:23 Rhythm: Other (svt) [place]: Normal (typical SVT with rate 165) #2 Interpretation EKG Date: 09/10/21 Time: 13:46 Rhythm: NSR [place]: Normal P-Wave: Present QRS: Normal ST-T: Normal QT: Normal (converted NSR after dilt, somewhat low voltage c/w body habitus (inc'd BMI)) Course - Orders/Labs/Meds Orders: Active Orders 24 hr Category Date Time Status GLUCOSE,POC [POC] Stat Lab 09/10/21 13:45 Ordered EKG 12 Lead [EK] Routine Ther 09/10/21 13:51 Ordered EKG 12 Lead [EK] Stat Ther 09/10/21 13:10 Ordered Labs: Laboratory Tests 09/10/21 09/10/21 Range/Units 13:40 13:50 POC Glucose 288 H (80-116) mg/dL Troponin I 6.2 (4.0-60.3) pg/mL Meds: Medications Discontinued Medications Generic Name Dose Route Start Last Admin Trade Name Freq PRN Reason Stop Dose Admin Diltiazem HCl 20 mg 09/10/21 13:32 09/10/21 13:36 Diltiazem 25 Mg/5 Ml Sdv IVPUSH 09/10/21 13:33 20 mg ONETIME ONE Administration Diltiazem HCl 240 mg 09/10/21 14:40 09/10/21 14:45 Diltiazem 240 Mg Cap.Er PO 09/10/21 14:41 240 mg ONETIME ONE Administration - Re-Assessments/Exams Free Text/Narrative Re-Assessment/Exam: 09/10/21 14:50 pt cautioned that dilt will cause fatigue x 1 wk, cautioned that low BP is possible altho unlikely pt and daughter indicated understanding trop wnl today and yesterday Departure - Departure Time of Disposition: 14:38 Disposition: Home, Self-Care 01 Condition: Good Clinical Impression: Paroxysmal SVT (supraventricular tachycardia) Prescriptions: Diltiazem HCl [Diltiazem 24Hr Cd] 240 mg PO DAILY #30 cap.er.24h Instructions: Supraventricular Tachycardia, Adult Forms: ED Department Discharge Additional Instructions: To help control heart rate, take diltiazem CD 240 mg 1 tab daily. Take a baby aspirin 81 mg daily. Continue your other medications. Use heat for 10 minutes every 1-2 hours for aches and pains. Try maneuvers at home as needed for additional fast rate. Return to ED if heart rate remains over 150 for one hour. See a ham stringer as soon as possible. See your PCP in the next week. Return to ED if you feel worse even if your heart rate is normal. - My Orders Last 24 Hours: My Active Orders 09/10/21 13:10 EKG 12 Lead [EK] Stat 09/10/21 13:45 GLUCOSE,POC [POC] Stat 09/10/21 13:51 EKG 12 Lead [EK] Routine - Assessment/Plan Last 24 Hours: My Active Orders 09/10/21 13:10 EKG 12 Lead [EK] Stat 09/10/21 13:45 GLUCOSE,POC [POC] Stat 09/10/21 13:51 EKG 12 Lead [EK] Routine
== END 2021-09-10 15:20 | disposition home or self-care (01) ==
LOC: FB.ED 13:06
DX: I47.1 Supraventricular tachycardia (principal); E78.00 Pure hypercholesterolemia, unspecified; I10 Essential (primary) hypertension; E11.9 Type 2 diabetes mellitus without complications; Z79.899 Other long term (current) drug therapy
CPT/HCPCS: 36415; 82947; 84484; 93005; 96374; 99285-25; A9270-GY; J3490

== ENCOUNTER 2021-09-19 19:13 | Emergency (ER) | payer MEDICAID ==
[2021-09-19] MEDS ORDERED: Sodium Chloride 0.9% 10 ML Syringe FLUSH PRN (19:34)
[2021-09-19] MEDS ORDERED: Diltiazem 25 MG/5 ML SDV IVPUSH STA ×3 (19:35→19:54)
[2021-09-19] MEDS ORDERED: Adenosine 6 MG/2 ML SDV IVPUSH ONE ×2 (19:50)
[2021-09-19] MEDS ORDERED: Diltiazem 120 MG Cap.CD PO STA (20:08)
--- NOTE | 2021-09-19 20:56 | EDM.PDOC ---
ED HPI GENERAL MEDICAL PROBLEM - General Chief Complaint: Cardiovascular Problem Stated Complaint: RACING HEART Time Seen by Provider: 09/19/21 19:35 Source of Information: Reports: Patient, Family History Limitations: Reports: No Limitations - History of Present Illness INITIAL COMMENTS - FREE TEXT/NARRATIVE: Patient presented to the ED because of palpitations which started at 1830. There is associated headache but no chest pain or dyspnea. She has a history of PSVT and A. flutter and is taking cardizem ER 240 mg daily. - Related Data Allergies Allergy/AdvReac Type Severity Reaction Status Date / Time No Known Allergies Allergy Verified 09/10/21 13:32 Home Meds: Home Meds Benazepril [Lotensin] 20 mg PO DAILY 05/29/19 [History] Naproxen 500 mg PO Q8H PRN 05/29/19 [History] medroxyPROGESTERone [Provera] 10 mg PO DAILY 05/29/19 [History] Diltiazem HCl [Diltiazem 24Hr Cd] 240 mg PO DAILY #30 cap.er.24h 09/10/21 [Rx] Aspirin 81 mg PO DAILY 09/19/21 [History] Empagliflozin [Jardiance] 10 mg PO DAILY 09/19/21 [History] metFORMIN [Glucophage] 500 mg PO BIDMEALS 09/19/21 [History] Past Medical History Cardiovascular History: Reports: High Cholesterol, Hypertension Respiratory History: Reports: Asthma, Sleep Apnea Other Respiratory History: pt has sleep apnea as verbalized by daughter Gastrointestinal History: Reports: GERD, Irritable Bowel Syndrome Genitourinary History: Reports: Other (See Below) Other Genitourinary History: cervical hyperplasia SCOURER History: Reports: , Other (See Below) Other SCOURER History: cervical hyperplasia Musculoskeletal History: Reports: Fibromyalgia Other Musculoskeletal History: fibromyalgia Neurological History: Reports: Migraines Other Neuro History: and tension headache from fibromyalgia Psychiatric History: Reports: Anxiety, Depression Endocrine/Metabolic History: Reports: Diabetes, Type II - Infectious Disease History Infectious Disease History: Reports: Chicken Pox - Past Surgical History HEENT Surgical History: Reports: Oral Surgery Other HEENT Surgeries/Procedures: wisdom teeth extraction Cardiovascular Surgical History: Reports: None Respiratory Surgical History: Reports: None GI Surgical History: Reports: Cholecystectomy Female Surgical History: Reports: Other (See Below) Other Female Surgeries/Procedures: multiple martínez cyst (fibroid) on the breast, not taking drugs or not candidate for surgery Social & Family History - Family History Family Medical History: No Pertinent Family History HEENT: Reports: Impaired Vision - Tobacco Use Tobacco Use Status *Q: Never Tobacco User - Caffeine Use Caffeine Use: Reports: None Caffeine Use Comment: seldom drinks soda or coffee - Living Situation & Occupation Living situation: Reports: with Family ED ROS GENERAL - Review of Systems Review Of Systems: See Below Constitutional: Reports: No Symptoms HEENT: Reports: No Symptoms Respiratory: Reports: No Symptoms Cardiovascular: Reports: Palpitations Endocrine: Reports: No Symptoms GI/Abdominal: Reports: No Symptoms : Reports: No Symptoms Musculoskeletal: Reports: No Symptoms Skin: Reports: No Symptoms Neurological: Reports: No Symptoms Psychiatric: Reports: No Symptoms Hematologic/Lymphatic: Reports: No Symptoms ED EXAM, GENERAL - Physical Exam Exam: See Below Exam Limited By: No Limitations General Appearance: Alert, No Apparent Distress Eye Exam: Bilateral Eye: PERRL Ears: Normal External Exam, Normal [place] Nose: Normal Inspection, Normal Mucosa, No Blood Throat/Mouth: Normal Inspection, Normal Lips, Normal Teeth, Normal Gums, Normal Oropharynx, Normal Voice Head: Atraumatic, Normocephalic Neck: Normal Inspection, Supple, Non-Tender, Full Range of Motion Respiratory/Chest: No Respiratory Distress, Lungs Clear, Normal Breath Sounds, No Accessory Muscle Use, Chest Non-Tender Cardiovascular: Normal Peripheral Pulses, No Edema, No Gallop, No JVD, No Murmur, No Rub, Tachycardia, Irregularly Irregular GI/Abdominal: Normal Bowel Sounds, Soft, Non-Tender, No Organomegaly, No Distention, No Abnormal Bruit Extremities: Normal Inspection, Normal Range of Motion, Non-Tender, No Pedal Edema, Normal Capillary Refill Neurological: Alert, Oriented, CN II-XII Intact, Normal Cognition, Normal Gait Psychiatric: Normal Affect Course - Vital Signs Text/Narrative:: Lab/EKG result was reviewed and discussed with patient Cardizem 15 mg IV x2 doses Cardizem 10 mg IV x1 dose Cardizem CD 120 mg PO x1 Last Recorded V/S: Last Vital Signs Temp Pulse 95 09/19/21 20:40 Resp 14 09/19/21 20:40 BP 132/74 09/19/21 20:40 Pulse Ox 95 09/19/21 20:40 - Orders/Labs/Meds Orders: Active Orders 24 hr Category Date Time Status Saline Lock Insert [OM.PC] Routine Oth 09/19/21 19:34 Ordered EKG 12 Lead [EK] Routine Ther 09/19/21 19:34 Ordered Labs: Laboratory Tests 09/19/21 09/19/21 09/19/21 Range/Units 19:40 19:40 19:40 WBC 9.5 (3.0-10.3) x10-3/uL RBC 5.37 H (3.60-5.20) x10(6)uL Hgb 15.4 (11.4-15.5) g/dL Hct 46.6 (34.2-48.2) % MCV 86.8 (76.7-100.5) fL MCH 28.6 (23.9-33.9) pg MCHC 32.9 (31.9-34.8) g/dL RDW 14.9 (12.3-16.5) % Plt Count 171 (151-488) x10(3)uL MPV 7.8 (7.1-12.4) fL Neut % (Auto) 67.4 (30.8-76.2) % Lymph % (Auto) 23.9 (18.4-52.1) % [place] % (Auto) 7.2 (4.4-15.7) % Eos % (Auto) 1.0 (0.6-8.1) % Baso % (Auto) 0.5 (0.2-1.5) % Neut # (Auto) 6.4 H (1.5-6.3) x10-3/uL Lymph # (Auto) 2.3 (1.0-4.4) x10-3/uL [place] # (Auto) 0.7 (0.3-1.0) x10-3/uL Eos # (Auto) 0.1 (0.0-0.8) x10-3/uL Baso # (Auto) 0.0 (0.0-0.1) x10-3/uL Sodium 139 (135-145) mmol/L Potassium 3.8 (3.5-5.3) mmol/L Chloride 105 (100-110) mmol/L Carbon Dioxide 24 (21-32) mmol/L BUN 9 (7-18) mg/dL Creatinine 0.9 (0.55-1.02) mg/dL Est Cr Clr Drug Dosing TNP Estimated GFR (MDRD) > 60 (>60) BUN/Creatinine Ratio 10.0 (9-20) Glucose 170 H D (80-116) mg/dL Calcium 8.6 (8.6-10.2) mg/dL Total Bilirubin 0.5 (0.1-1.3) mg/dL AST 28 H D (5-25) IU/L ALT 37 H (12-36) U/L Alkaline Phosphatase 124 H (56-112) IU/L Troponin I 4.3 (4.0-60.3) pg/mL Total Protein 6.9 (6.0-8.0) g/dL Albumin 3.3 (3.2-4.6) g/dL Globulin 3.6 g/dL Albumin/Globulin Ratio 0.9 Meds: Medications Discontinued Medications Generic Name Dose Route Start Last Admin Trade Name Freq PRN Reason Stop Dose Admin Adenosine 6 mg 09/19/21 19:50 Adenosine 6 Mg/2 Ml Sdv IVPUSH 09/19/21 19:51 NOW ONE Adenosine 12 mg 09/19/21 19:50 Adenosine 6 Mg/2 Ml Sdv IVPUSH 09/19/21 19:51 NOW ONE Diltiazem HCl 15 mg 09/19/21 19:35 09/19/21 19:38 Diltiazem 25 Mg/5 Ml Sdv IVPUSH 09/19/21 19:36 15 mg NOW STA Administration Diltiazem HCl 10 mg 09/19/21 19:35 09/19/21 19:42 Diltiazem 25 Mg/5 Ml Sdv IVPUSH 09/19/21 19:36 10 mg NOW STA Administration Diltiazem HCl 15 mg 09/19/21 19:54 09/19/21 19:59 Diltiazem 25 Mg/5 Ml Sdv IVPUSH 09/19/21 19:55 15 mg NOW STA Administration Diltiazem HCl 120 mg 09/19/21 20:08 09/19/21 20:13 Diltiazem 120 Mg Cap.Cd PO 09/19/21 20:09 120 mg NOW STA Administration Sodium Chloride 10 ml 09/19/21 19:34 09/19/21 19:49 Sodium Chloride 0.9% 10 Ml Syringe FLUSH 10 ml ASDIRECTED PRN Administration Keep Vein Open Departure - Departure Time of Disposition: 21:00 Disposition: Home, Self-Care 01 Condition: Good Clinical Impression: Palpitations, Afib Instructions: Palpitations, [id number], Atrial Fibrillation, [id number] Referrals: PCP,None [Primary Care Provider] - Forms: ED Department Discharge Additional Instructions: Please read discharge instructions on palpitations and AFIB Continue your cardizem Call and make an appointment to see one of the power engineer at [facility]. Tell them that you had ER visits related to palpitations-SVT,AFIB and A flutter Sepsis Event Note (ED) - Evaluation Sepsis Screening Result: No Definite Risk - Focused Exam Vital Signs: Vital Signs Pulse Pulse Resp BP BP Pulse Ox 09/19/21 20:40 95 14 132/74 95 09/19/21 20:20 94 15 140/70 96 09/19/21 20:13 93 140/69 09/19/21 19:35 167 H 19 164/72 H 96 - My Orders Last 24 Hours: My Active Orders 09/19/21 19:34 Saline Lock Insert [OM.PC] Routine EKG 12 Lead [EK] Routine - Assessment/Plan Last 24 Hours: My Active Orders 09/19/21 19:34 Saline Lock Insert [OM.PC] Routine EKG 12 Lead [EK] Routine
--- NOTE | 2021-09-19 21:44 | PCM.EKG ---
#1 Interpretation EKG Date: 09/19/21 Time: 19:21 Rhythm: Other Rate (Beats/Min): 164 [place]: Normal P-Wave: Present QRS: Normal ST-T: Normal QT: Normal Comparison: No Change EKG Interpretation Comments: Wide QRS Tachycardia
== END 2021-09-19 21:13 | disposition home or self-care (01) ==
LOC: FB.ED 19:13
DX: I48.91 Unspecified atrial fibrillation (principal); R00.2 Palpitations; I10 Essential (primary) hypertension; E78.00 Pure hypercholesterolemia, unspecified; K21.9 Gastro-esophageal reflux disease without esophagitis; E11.9 Type 2 diabetes mellitus without complications; Z79.82 Long term (current) use of aspirin; Z79.899 Other long term (current) drug therapy
CPT/HCPCS: 36415; 80053; 84484; 85025; 93005; 96374; 99285; A9270; J3490

== ENCOUNTER 2022-04-25 02:26 | Emergency (ER) | payer MEDICAID ==
[2022-04-25] MEDS ORDERED: Sodium Chloride 0.9% 1,000 ML IV ONE (02:30)
[2022-04-25] MEDS ORDERED: Adenosine 6 MG/2 ML SDV IVPUSH ONE ×2 (02:31→02:42)
[2022-04-25] MEDS ORDERED: Diltiazem 25 MG/5 ML SDV IVPUSH ONE ×3 (02:51→03:18)
[2022-04-25] MEDS ORDERED: Metoprolol Tartrate 5 MG/5 ML SDV IVPUSH ONE ×3 (03:00→03:34)
[2022-04-25] MEDS ORDERED: Metoprolol Tartrate 50 MG Tab PO ONE (03:48)
== END 2022-04-25 04:25 | disposition home or self-care (01) ==
LOC: FB.ED 02:26
DX: I48.91 Unspecified atrial fibrillation (principal); E11.9 Type 2 diabetes mellitus without complications; K21.9 Gastro-esophageal reflux disease without esophagitis; E78.00 Pure hypercholesterolemia, unspecified; I10 Essential (primary) hypertension; Z79.84 Long term (current) use of oral hypoglycemic drugs; Z79.01 Long term (current) use of anticoagulants
CPT/HCPCS: 93005; 93010; 96361; 96374; 96375; 99283; 99284-25; A9270-GY; J0153; J3490; J7030

== ENCOUNTER 2022-09-16 12:27 | Emergency (ER) | payer MEDICAID ==
[2022-09-16 13:35] LABS: ESTIMATED GFR 83 mL/min (>60)
[2022-09-16] MEDS ORDERED: Sodium Chloride 0.9% 1,000 ML IV ONE (13:45)
[2022-09-16] MEDS ORDERED: cefTRIAXone 1 GM Vial IVPUSH STA (13:46)
[2022-09-16] MEDS ORDERED: Sodium Chloride 0.9% 10 ML Syringe FLUSH PRN (14:13)
== END 2022-09-16 15:31 | disposition home or self-care (01) ==
LOC: FB.ED 12:27
DX: R00.2 Palpitations (principal); N39.0 Urinary tract infection, site not specified; E86.0 Dehydration; I10 Essential (primary) hypertension; E11.9 Type 2 diabetes mellitus without complications; Z79.899 Other long term (current) drug therapy; Z79.84 Long term (current) use of oral hypoglycemic drugs; Z79.01 Long term (current) use of anticoagulants; Z90.49 Acquired absence of other specified parts of digestive tract
CPT/HCPCS: 36415; 71046; 80053; 81001; 83880; 84484; 85025; 87086; 87088; 87186; 93005; 96361; 96374; 99285; J0696; J3490; J7030

== ENCOUNTER 2022-12-28 18:18 | Emergency (ER) | payer MEDICAID ==
[2022-12-28] MEDS ORDERED: Diltiazem 25 MG/5 ML SDV IVPUSH ONE ×2 (18:29→19:40)
[2022-12-28] MEDS: Sodium Chloride 0.9% 10 ML Syringe FLUSH PRN ×2 (19:10→19:47)
[2022-12-28 19:26] LABS: ESTIMATED GFR 71 mL/min (>60)
[2022-12-28 20:09] LABS: CORONAVIRUS COVID-19 NAA NEGATIVE (NEGATIVE)
[2022-12-28] MEDS ORDERED: Metoprolol Tartrate 50 MG Tab PO ONE (20:24)
[2022-12-28] MEDS ORDERED: hydrALAZINE 20 MG/ML SDV IVPUSH ONE (20:40)
== END 2022-12-28 22:05 | disposition home or self-care (01) ==
LOC: FB.ED 18:18
DX: I48.91 Unspecified atrial fibrillation (principal); J06.9 Acute upper respiratory infection, unspecified; I48.92 Unspecified atrial flutter; E78.00 Pure hypercholesterolemia, unspecified; I10 Essential (primary) hypertension; K21.9 Gastro-esophageal reflux disease without esophagitis; E11.9 Type 2 diabetes mellitus without complications; Z20.822 Contact with and (suspected) exposure to COVID-19; Z79.01 Long term (current) use of anticoagulants; Z79.84 Long term (current) use of oral hypoglycemic drugs
CPT/HCPCS: 0241U; 36415; 71045; 80053; 81001; 83880; 84484; 85025; 93005; 93010; 96374; 96376; 99284; 99285-25; A9270-GY; J3490

== ENCOUNTER 2023-01-11 18:50 | Emergency (ER) | payer MEDICAID ==
[2023-01-11] MEDS ORDERED: Sodium Chloride 0.9% 1,000 ML IV ONE (19:03)
[2023-01-11 19:21] LABS: ESTIMATED GFR 97 mL/min (>60)
== END 2023-01-11 20:37 | disposition home or self-care (01) ==
LOC: FB.ED 18:50
DX: R42 Dizziness and giddiness (principal); I48.0 Paroxysmal atrial fibrillation; E11.9 Type 2 diabetes mellitus without complications; R60.0 Localized edema; K21.9 Gastro-esophageal reflux disease without esophagitis; E66.9 Obesity, unspecified; Z68.41 Body mass index [BMI] 40.0-44.9, adult; Z88.0 Allergy status to penicillin; Z79.899 Other long term (current) drug therapy; Z79.01 Long term (current) use of anticoagulants; Z79.84 Long term (current) use of oral hypoglycemic drugs
CPT/HCPCS: 36415; 80053; 83735; 84484; 85025; 86140; 99284

== ENCOUNTER 2024-05-17 20:00 | Emergency (ER) | payer MEDICARE, MEDICAID ==
[2024-05-17] MEDS: Diphtheria,Pertussis(Acell),Tetanus Vaccine 0.5 ML Syringe IM ONE (20:56)
[2024-05-17] MEDS: Tetracaine HCl/PF 0.5% 4 ML Bottle EYELF ONE (21:49)
[2024-05-17] MEDS: Distilled Water Ophth Irrig Soln 120 ML Bottle EYELF ONE (21:49)
[2024-05-17] MEDS: Erythromycin Base 0.5% Ophth Oint 3.5 GM Tube EYELF ONE (23:33)
== END 2024-05-17 23:50 | disposition home or self-care (01) ==
LOC: FB.ED 20:00
DX: S92.425A Nondisplaced fracture of distal phalanx of left great toe, initial encounter for closed fracture (principal); S00.83XA Contusion of other part of head, initial encounter; S80.00XA Contusion of unspecified knee, initial encounter; I10 Essential (primary) hypertension; I48.91 Unspecified atrial fibrillation; E11.9 Type 2 diabetes mellitus without complications; E66.9 Obesity, unspecified; Z90.49 Acquired absence of other specified parts of digestive tract; Z79.01 Long term (current) use of anticoagulants; Z79.84 Long term (current) use of oral hypoglycemic drugs; Z79.899 Other long term (current) drug therapy; Z88.0 Allergy status to penicillin; Z68.41 Body mass index [BMI] 40.0-44.9, adult; Z23 Encounter for immunization; W01.0XXA Fall on same level from slipping, tripping and stumbling without subsequent striking against object, initial encounter
CPT/HCPCS: 70450; 70486; 72125; 73562-50; 73660-TA; 90471; 90715; 99284; 99284-25; A9270-GY

== ENCOUNTER 2025-02-05 16:48 | Emergency (ER) | payer MEDICARE, MEDICAID ==
[2025-02-05] MEDS: Insulin Regular, Human 100 Units/ML 10 ML Vial SUBCUT ONE ×2 (17:42→19:08)
== END 2025-02-05 20:45 | disposition home or self-care (01) ==
LOC: FB.ED 16:48
DX: E11.65 Type 2 diabetes mellitus with hyperglycemia (principal); D50.9 Iron deficiency anemia, unspecified; R74.01 Elevation of levels of liver transaminase levels; I48.91 Unspecified atrial fibrillation; I10 Essential (primary) hypertension; E78.00 Pure hypercholesterolemia, unspecified; K21.9 Gastro-esophageal reflux disease without esophagitis; E66.9 Obesity, unspecified; Z79.01 Long term (current) use of anticoagulants; Z79.899 Other long term (current) drug therapy; Z79.84 Long term (current) use of oral hypoglycemic drugs; Z88.0 Allergy status to penicillin; Z68.35 Body mass index [BMI] 35.0-35.9, adult
CPT/HCPCS: 82947; 99284; A9270

== ENCOUNTER 2025-05-22 16:07 | Emergency (ER) | payer MEDICARE, MEDICAID ==
[2025-05-22] MEDS ORDERED: Sodium Chloride 0.9% 10 ML Syringe FLUSH PRN (16:57)
[2025-05-22 17:40] LABS: HEMOGLOBIN 8.3 g/dL (11.4-15.5)
[2025-05-22 17:41] LABS: BLOOD UREA NITROGEN,BUN 9 mg/dL (7-18); BUN/CREATININE RATIO 11.3 (9-20); CALCIUM 8.8 mg/dL (8.6-10.2); CARBON DIOXIDE,CO2 27 mmol/L (21-32); CHLORIDE,CL 100 mmol/L (100-110); CREATININE 0.8 mg/dL (0.55-1.02); ESTIMATED GFR 81 mL/min (>60); GLUCOSE RANDOM 297 mg/dL (80-116); POTASSIUM,K 4.7 mmol/L (3.5-5.3); SODIUM,NA 133 mmol/L (135-145)
[2025-05-22 17:43] LABS: HEMATOCRIT 27.1 % (34.2-48.2); MEAN CORPUSCULAR HEMOGLOBIN 25.2 pg (23.9-33.9); MEAN CORPUSCULAR HGB CONC 30.8 g/dL (31.9-34.8); MEAN CORPUSCULAR VOLUME 81.8 fL (76.7-100.5); PLATELET COUNT,PLT 542 x10(3)uL (151-488); RED BLOOD CELL COUNT 3.31 x10(6)uL (3.60-5.20); RED CELL DISTRIBUTION WIDTH 18.4 % (12.3-16.5); WHITE BLOOD CELL COUNT,WBC 28.3 x10-3/uL (3.0-10.3)
[2025-05-22 17:47] LABS: A/G RATIO 0.3; ALANINE AMINOTRANSFERASE,ALT 16 U/L (12-36); ALBUMIN 1.8 g/dL (3.2-4.6); ALKALINE PHOSPHATASE 153 IU/L (56-112); ASPARTATE AMNIOTRANSFERASE,AST 19 IU/L (5-25); BILIRUBIN TOTAL 0.4 mg/dL (0.1-1.3); PROTEIN TOTAL,TP 7.1 g/dL (6.0-8.0)
[2025-05-22 17:50] LABS: LACTIC ACID 1.5 mmol/L (0.4-2.0)
[2025-05-22 17:59] LABS: EOSINOPHILS PERCENT MAN 1 % (0-5); HYPERSEGMENTED NEUTROPHILS MODERATE; HYPOCHROMASIA FEW; LYMPHOCYTES PERCENT MAN 4 % (13-37); MONOCYTES PERCENT MAN 6 % (4-12); POIKILOCYTOSIS FEW; SEG NEUTROPHILS PERCENT MAN 89 % (46-82)
[2025-05-22 18:01] LABS: ANISOCYTOSIS MODERATE
[2025-05-22] MEDS: Sodium Chloride 0.9% 1,000 ML IV ONE ×2 (18:17→19:45)
[2025-05-22] MEDS: Iopamidol 755 Mg/ML 100 ML Bottle IV SCH (18:18)
[2025-05-22] MEDS: Ertapenem 1 GM Vial IVPUSH ONE (18:34)
[2025-05-22] MEDS: VANCOmycin 1 GM/200 ML 1 GM in Premix Bag 1 BAG IV ONE (18:37)
[2025-05-22 18:48] LABS: BILIRUBIN,URINE NEGATIVE (NEGATIVE); GLUCOSE,URINE 250 mg/dL (NORMAL); KETONES,URINE NEGATIVE (NEGATIVE); LEUKOCYTE ESTERASE,URINE SMALL (NEGATIVE); NITRITE,URINE NEGATIVE (NEGATIVE); OCCULT BLOOD,URINE MODERATE (NEGATIVE); PROTEIN,URINE TRACE mg/dL (NEGATIVE); UROBILINOGEN,URINE 1 mg/dL (NEGATIVE)
[2025-05-22 18:50] LABS: APPEARANCE,URINE SLIGHTLY CLOUDY (CLEAR); COLOR,URINE YELLOW (YELLOW)
[2025-05-22 18:59] LABS: RBC,URINE 0-5 (0-5); SQUAMOUS EPITHELIAL CELLS,UR MODERATE (NS,R,O)
[2025-05-22 19:00] LABS: BACTERIA,URINE MODERATE (NS)
[2025-05-22] MEDS: VANCOmycin 1 GM/200 ML 200 ML ONE ×2 (19:25→19:26)
[2025-05-22] MEDS: Ertapenem 1 GM in Sodium Chloride 0.9% 50 ML IV ONE (19:25)
[2025-05-22] MEDS: fentaNYL 100 MCG/2 ML SDV IVPUSH ONE (19:45)
[2025-05-22] MEDS: HYDROmorphone 2 MG/ML SDV IVPUSH ONE (21:32)
[2025-05-22] MEDS: Ondansetron 4 MG/2 ML SDV IVPUSH SCH (21:32)
== END 2025-05-22 21:35 ==
LOC: FB.ED 16:07
DX: A41.9 Sepsis, unspecified organism (principal); R65.20 Severe sepsis without septic shock; I10 Essential (primary) hypertension; E78.00 Pure hypercholesterolemia, unspecified; E66.9 Obesity, unspecified; E11.9 Type 2 diabetes mellitus without complications; Z88.0 Allergy status to penicillin; Z79.84 Long term (current) use of oral hypoglycemic drugs; Z79.4 Long term (current) use of insulin; Z79.899 Other long term (current) drug therapy; Z90.49 Acquired absence of other specified parts of digestive tract; Z79.01 Long term (current) use of anticoagulants
CPT/HCPCS: 36415; 74177; 80053; 81001; 83605; 83690; 85025; 86140; 87040; 87086; 87088; 87186; 96361; 96365; 96375; 99285; J1171; J1335; J2405; J3010; J3372; J7030; Q9967